=== PATIENT | female | born 1930 | race Caucasian/White ===

== ENCOUNTER 2019-01-11 09:02 | Outpatient (CLI) | payer MEDICARE, OTHER | END 2019-01-11 09:03 | disposition critical access hospital (66) | LOC: EMS 09:02 | PROVIDERS: ATTEND Surgery | DX: R07.89 Other chest pain (principal); M54.89 Other dorsalgia; V43.53XA Car driver injured in collision with pick-up truck in traffic accident, initial encounter; Y92.414 Local residential or business street as the place of occurrence of the external cause | CPT/HCPCS: A0425; A0429 ==

== ENCOUNTER 2019-01-11 09:23 | Emergency (ER) | payer OTHER, MEDICARE ==
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
[2019-01-11 10:56] VITALS: BP 211/97
== END 2019-01-11 10:57 | disposition home or self-care (01) ==
LOC: EDUNIT# → ED 09:23
DX: S20.219A Contusion of unspecified front wall of thorax, initial encounter (principal); V43.52XA Car driver injured in collision with other type car in traffic accident, initial encounter; I10 Essential (primary) hypertension
CPT/HCPCS: 71045; 93005; 99283

== ENCOUNTER 2019-02-02 09:42 | Outpatient (CLI) | payer MEDICARE, OTHER | END 2019-02-02 09:43 | disposition critical access hospital (66) | LOC: EMS 09:42 | PROVIDERS: ATTEND Surgery | DX: R11.2 Nausea with vomiting, unspecified (principal) | CPT/HCPCS: A0425; A0427 ==

== ENCOUNTER 2019-02-02 10:04 | Inpatient (IN) | payer MEDICARE, OTHER ==
--- NOTE | 2019-02-02 10:59 | ED Physician Documentation ---
PD HPI NVD - Stated complaint Stated Complaint: N/V - Chief complaint Chief Complaint: Abd Pain - History obtained from History obtained from: Patient - History of Present Illness Timing - onset: How many days ago (The patient had some diarrhea about a week ago. This started a couple of days after being prescribed chlorthalidone for hypertension. She was also having frequent urination was up all night due to that and had poor sleeping. The diarrhea and frequent urination continued for a couple of days and was associated with general weakness. They called her primary care and were told to stop the chlorthalidone. The diarrhea did decrease and she was feeling improved though still general weakness. She then started with nausea and vomiting a couple of days ago without any abdominal pain. That has persisted. She is having feeling of general weakness. Her daughter brought her in for concerns of dehydration.) Timing - duration: Days Timing - details: Abrupt onset, Still present, Waxing and waning Associated symptoms: Dizzy, Loss of appetite. No: Fever, Abdominal pain, Near syncope / syncope, Dysuria Contributing factors: No: Sick contact, Bad food, Recent antibiotics Improved by: No: Eating Worsened by: Eating Similar symptoms before: Has not had sx before Recently seen: Clinic (The patient was seen in the emergency room for unrelated problem but a month ago and is found to have high blood pressure. She was monitoring that and it remained high over a week or so. She was started on lisinopril by her primary care and the blood pressure continue to be high. She had chlorthalidone started about a week ago. She had the above-noted apparent side effects after starting it or might have been coincident with it.), Emergency Dept Review of Systems Constitutional: denies: Fever, Chills, Myalgias Nose: denies: Rhinorrhea / runny nose, Congestion Throat: denies: Sore throat Cardiac: denies: Chest pain / pressure, Palpitations Respiratory: denies: Cough GI: reports: Nausea, Vomiting (past couple days), Diarrhea (a week ago). denies: Abdominal Pain : denies: Dysuria, Frequency Musculoskeletal: denies: Neck pain, Back pain Neurologic: reports: Generalized weakness, Confused (today, mild). 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 : None HEENT: None Psych: None Musculoskeletal: Osteoarthritis Derm: None - Past Surgical History Past Surgical History: Yes General: Appendectomy Ortho: Hip replacement /FILLING CARRIER: section - Present Medications Home Medications: Ambulatory Orders Medication Instructions Recorded Confirmed Lisinopril [Prinivil] 20 mg PO 02/02/19 - Allergies Allergies/Adverse Reactions: Allergies Allergy/AdvReac Type Severity Reaction Status Date / Time fruit Allergy Respiratory Uncoded 07/30/15 16:54 - Social History Does the pt smoke?: No Smoking Status: Never smoker Does the pt drink ETOH?: No Does the pt have substance abuse?: No - Immunizations Immunizations are current?: No Immunizations: TDAP >10years/unknown - POLST Patient has POLST: No PD ED PE NORMAL - Vitals Vital signs reviewed: Yes - General General: No acute distress, Well developed/nourished. No: Alert and oriented X 3 (person and place, not really time. Appears generally weak. ) - HEENT HEENT: Pharynx benign. No: Moist mucous membranes - Neck Neck: Supple, no meningeal sign, No adenopathy - Cardiac Cardiac: RRR, No murmur - Respiratory Respiratory: Clear bilaterally - Abdomen Abdomen: Soft, Non distended, No organomegaly. No: Normal bowel sounds (decreased) - Female Female : Deferred - Rectal Rectal: Deferred - Back Back: No CVA TTP - Derm Derm: Warm and dry. No: Normal color (pale) - Extremities Extremities: No tenderness to palpate, Normal ROM s pain, No edema - Neuro Neuro: No motor deficit, No sensory deficit, Normal speech Eye Opening: Spontaneous Motor: Obeys Commands Verbal: Oriented GCS Score: 15 Results - Vitals Vitals: Vital Signs - 24 hr 02/02/19 02/02/19 10:06 11:39 Temperature 36 C L Heart Rate 73 67 Respiratory 22 18 Rate Blood Pressure 160/84 H 183/70 H O2 Saturation 100 98 Oxygen O2 Source [With Activity] Room air O2 Source [Without Activity] Room air O2 Source Room air - Labs Labs: Laboratory Tests 02/02/19 02/02/19 02/02/19 11:46 11:46 11:46 WBC 6.4 RBC 3.84 L Hgb 11.1 L Hct 33.0 L MCV 86.0 MCH 29.0 MCHC 33.8 RDW 13.7 Plt Count 273 MPV 6.9 L Neut # (Auto) 5.6 Lymph # (Auto) 0.5 L [place] # (Auto) 0.3 Eos # (Auto) 0.0 Baso # (Auto) 0.0 Absolute Nucleated RBC 0.00 Nucleated RBC % 0.0 Sodium 112 L* Potassium 3.4 L Chloride 77 L* Carbon Dioxide 24 Anion Gap 11.0 BUN 16 Creatinine 0.8 Estimated GFR (MDRD) 68 L Glucose 123 H Calcium 8.7 Magnesium 1.7 Total Bilirubin 1.0 AST 30 ALT 27 Alkaline Phosphatase 63 Troponin I < 0.04 Total Protein 6.2 L Albumin 3.9 Globulin 2.3 Albumin/Globulin Ratio 1.7 Lipase 25 PD MEDICAL DECISION MAKING - ED course Complexity details: reviewed results, re-evaluated patient (Less nauseated with antiemetics. We are giving her IV fluids. The electrolytes are showing considerable abnormality with the new hyponatremia of 112. This is presumed related to fluid losses with the diuretic, diarrhea, vomiting over the past week or so. She does have a mild level of confusion and does have general weakness according to her daughter. This is likely both dehydration as well as the hyponatremia. Her vomiting is likely related to gastritis so I did add a famotidine medication. She does not have any abdominal tenderness so I did not see need for imaging. Still awaiting a urine analysis.), considered differential, d/w patient, d/w family (daughter) Departure - Departure Disposition: 66 [facility] DC/Xfer Clinical Impression: Dehydration, Hyponatremia Nausea and vomiting Qualifiers: Vomiting type: unspecified Vomiting Intractability: non-intractable Qualified Code(s): R11.2 - Nausea with vomiting, unspecified Condition: Stable Record reviewed to determine appropriate education?: Yes
[2019-02-02] MEDS ORDERED: FAMOTIDINE 20 MG/2 ML VIAL IVP STA (11:31)
[2019-02-02] MEDS ORDERED: SODIUM CHLORIDE 0.9% 1,000 ML IV ONE ×2 (11:31→13:40)
[2019-02-02] MEDS ORDERED: ACETAMINOPHEN 1,000 MG/100 ML 100 ML IV STA (11:31)
[2019-02-02] MEDS ORDERED: ONDANSETRON 4 MG/2 ML VIAL IVP STA (11:31)
[2019-02-02 11:50] LABS: BASOPHILS % (AUTO) 0.1 %; HGB - HEMOGLOBIN 11.1 g/dL (12.0-16.0); LYMPHOCYTES # (AUTO) 0.5 10^3/uL (1.5-3.5); LYMPHOCYTES % (AUTO) 7.6 %; MEAN CORPUSCULAR HGB CONC 33.8 g/dL (32.0-36.0); MEAN PLATELET VOLUME 6.9 fL (7.9-10.8); MONOCYTES # (AUTO) 0.3 10^3/uL (0.0-1.0); MONOCYTES % (AUTO) 4.6 %; NEUTROPHILS # (AUTO) 5.6 10^3/uL (1.5-6.6); NEUTROPHILS % (AUTO) 87.7 %; PLT - PLATELET COUNT 273 10^3/uL (130-450); RED BLOOD COUNT 3.84 10^6/uL (4.20-5.40); RED CELL DISTRIBUTION WIDTH 13.7 % (12.0-15.0); WHITE BLOOD COUNT 6.4 x10^3/uL (4.8-10.8)
[2019-02-02 12:08] LABS: ALBUMIN 3.9 g/dL (3.2-5.5); ALBUMIN/GLOBULIN RATIO 1.7 (1.0-2.2); CALCIUM 8.7 mg/dL (8.5-10.3); CREATININE 0.8 mg/dL (0.4-1.0); MAGNESIUM 1.7 mg/dL (1.7-2.8); TOTAL PROTEIN 6.2 g/dL (6.7-8.2)
[2019-02-02] MEDS ORDERED: ONDANSETRON 4 MG/2 ML VIAL IVP PRN (13:23)
[2019-02-02] MEDS ORDERED: HYDROmorphone 0.5 MG/0.5 ML SYRINGE IVP PRN (13:23)
[2019-02-02] MEDS ORDERED: ONDANSETRON ODT 4 MG TABLET TL PRN (13:23)
[2019-02-02] MEDS ORDERED: PROCHLORPERAZINE 10 MG/2 ML VIAL IVP PRN (13:23)
[2019-02-02 14:00] LABS: BILIRUBIN,URINE NEGATIVE (NEGATIVE); GLUCOSE, URINE (UA) NEGATIVE (NEGATIVE); KETONES,URINE (UA) 15 mg/dL (NEGATIVE); LEUKOCYTE ESTERASE, URINE TRACE (NEGATIVE); NITRITE,URINE NEGATIVE (NEGATIVE); OCCULT BLOOD,URINE TRACE-LYSE (NEGATIVE); PH,URINE 7.5 PH (5.0-7.5); PROTEIN,URINE NEGATIVE (NEGATIVE); UROBILINOGEN,URINE 0.2 (NORMAL) E.U./dL (NORMAL)
[2019-02-02] MEDS ORDERED: SODIUM CHLORIDE 0.9% 1,000 ML IV SCH (14:00)
[2019-02-02 14:01] LABS: CLARITY,URINE HAZY (CLEAR)
[2019-02-02 14:09] LABS: BACTERIA,URINE Few /HPF (None Seen); RBC,URINE 0-5 /HPF (0-5); SQUAMOUS EPITHELIAL CELL,UR MANY Squamous (<= Few)
[2019-02-02] MEDS: PANTOPRAZOLE 40 MG VIAL IVP SCH ×2 (14:58→17:47)
[2019-02-02] MEDS: SODIUM CHLORIDE FLUSH 0.9% 10 ML SYRINGE IVP PRN (14:59)
[2019-02-02] MEDS: SODIUM CHLORIDE FLUSH 0.9% 10 ML SYRINGE IVP SCH (14:59)
[2019-02-02] MEDS ORDERED: cloNIDine 0.1 MG PATCH TOP SCH (15:00)
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
[2019-02-02] MEDS ORDERED: SODIUM CHLORIDE 3% HYPERTONIC 500 ML IV SCH ×3 (18:00→19:00)
--- NOTE | 2019-02-02 20:36 | XRAY Report ---
Reason: nausea,vomitting,abd pain Procedure Date: 02/02/2019 Accession Number: [id number] / [id number] Procedure: XR - Abdomen Acute CPT Code: FULL RESULT: EXAM: ABDOMINAL SERIES AND PA CHEST EXAM DATE: 02/02/2019 05:27 PM. CLINICAL HISTORY: Abdominal pain and nausea/vomiting. COMPARISON: CHEST 1 VIEW 01/11/2019 9:24 AM CHEST 1 VIEW 07/30/2015 4:33 PM 07/31/2015 5:52 PM. TECHNIQUE: 2 views abdomen and 1 view chest. FINDINGS: CHEST: Lungs/Pleura: Chronic blunting of the left costophrenic angle likely representing pleural thickening. Mild patchy basilar opacity. No evidence of edema. No pneumothorax. Mediastinum: Heart size is normal. The aorta is mildly tortuous, as before. ABDOMEN: Bowel Gas Pattern: Within normal limits. No abnormal stool volume, dilated loops, or abnormal air-fluid levels. Free Air: None. Bones: Mild left convex curvature centered at L1-L2. Other: Atherosclerotic calcifications within the aorta. IMPRESSION: 1. Mild patchy left basilar opacity, which could represent atelectasis, infection, or aspiration given history of vomiting. 2. Normal bowel gas pattern. RADIA
[2019-02-02 20:48] LABS: BILIRUBIN,URINE NEGATIVE (NEGATIVE); GLUCOSE, URINE (UA) NEGATIVE (NEGATIVE); KETONES,URINE (UA) 15 mg/dL (NEGATIVE); LEUKOCYTE ESTERASE, URINE NEGATIVE (NEGATIVE); NITRITE,URINE NEGATIVE (NEGATIVE); OCCULT BLOOD,URINE SMALL (NEGATIVE); PROTEIN,URINE TRACE mg/dL (NEGATIVE); UROBILINOGEN,URINE 0.2 (NORMAL) E.U./dL (NORMAL)
[2019-02-02 21:03] LABS: BACTERIA,URINE None Seen /HPF (None Seen); CLARITY,URINE CLEAR (CLEAR); RBC,URINE 0-5 /HPF (0-5); SQUAMOUS EPITHELIAL CELL,UR MOD Squamous (<= Few)
[2019-02-03] MEDS ORDERED: hydrALAZINE INJ 20 MG/ML VIAL IVP PRN ×2 (00:51→13:56)
[2019-02-03] MEDS: SODIUM CHLORIDE FLUSH 0.9% 10 ML SYRINGE IVP SCH ×4 (02:25→16:10)
[2019-02-03] MEDS: PANTOPRAZOLE 40 MG VIAL IVP SCH (06:17)
[2019-02-03 07:10] LABS: ALBUMIN 3.7 g/dL (3.2-5.5); CALCIUM 9.2 mg/dL (8.5-10.3); CREATININE 0.8 mg/dL (0.4-1.0); MAGNESIUM 1.7 mg/dL (1.7-2.8); PHOSPHORUS 2.6 mg/dL (2.5-4.6)
[2019-02-03] MEDS: SODIUM CHLORIDE 0.9% 1,000 ML IV SCH ×2 (07:35→18:15)
[2019-02-03] MEDS ORDERED: POTASSIUM CHLOR 20 MEQ/100 ML 20 MEQ/100 ML BAG IV SCH (08:00)
[2019-02-03] MEDS: POLYETHYLENE GLYCOL 3350 17 GM PACKET PO SCH (08:22)
[2019-02-03] MEDS: POTASSIUM CHLOR 10 MEQ/100 ML 10 MEQ/100 ML BAG IV SCH ×8 (08:44→18:31)
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
[2019-02-03] MEDS: ACETAMINOPHEN 325 MG TABLET PO PRN (15:34)
[2019-02-03] MEDS ORDERED: SODIUM CHLORIDE 3% HYPERTONIC 500 ML IV SCH (19:00)
[2019-02-04] MEDS: ACETAMINOPHEN 325 MG TABLET PO PRN (04:56)
[2019-02-04] MEDS: SODIUM CHLORIDE FLUSH 0.9% 10 ML SYRINGE IVP SCH ×2 (04:56→08:48)
[2019-02-04 04:59] LABS: ALBUMIN 3.2 g/dL (3.2-5.5); CREATININE 0.7 mg/dL (0.4-1.0); MAGNESIUM 1.8 mg/dL (1.7-2.8); PHOSPHORUS 1.9 mg/dL (2.5-4.6)
[2019-02-04] MEDS ORDERED: POTASSIUM CHLORIDE 20 MEQ TABLET PO ONE ×2 (06:00→06:33)
[2019-02-04] MEDS: NEUTRA-PHOS 250 MG TABLET PO SCH ×2 (06:11→08:42)
[2019-02-04] MEDS: SODIUM CHLORIDE FLUSH 0.9% 10 ML SYRINGE IVP PRN (06:11)
[2019-02-04] MEDS: PANTOPRAZOLE 40 MG VIAL IVP SCH (06:11)
[2019-02-04] MEDS ORDERED: MAGNESIUM OXIDE 400 MG TABLET PO SCH (08:00)
[2019-02-04] MEDS: POLYETHYLENE GLYCOL 3350 17 GM PACKET PO SCH (08:46)
[2019-02-04] MEDS ORDERED: SODIUM CHLORIDE 1 GM TABLET PO SCH (09:00)
--- NOTE | 2019-02-04 10:49 | Discharge Plan ---
Discharge Plan Disposition: Home Health Service Condition: Stable Prescriptions: cloNIDine 0.1 MG PATCH [[id number]] 1 patch TOP Q7D #30 patch Potassium Chloride [Klor-Con Sprinkle] 16 meq PO DAILY #60 capsule.er Activity Restrictions: Activity as Tolerated Shower Restrictions: No Driving Restrictions: No Additional Instructions or Follow Up instructions: You were admitted to the hospital because nausea vomiting and diarrhea had resulted in weakness and fatigue. When we evaluated you we found her sodium to be dangerously, dangerously low. We were able to slowly raise your sodium level in your bloodstream. It is now almost normal. Normal is 135 and you are 127 this morning. We think that the nausea and vomiting and diarrhea were a result of the chlorthalidone you are prescribed for blood pressure medicine. We are asking you to stop the chlorthalidone as well as hydrochlorothiazide. To control your blood pressure we are prescribing a new medication called Catapres and it is a patch. We will continue the Catapres as well as the Lisinopril to control your blood pressure. Your potassium was also very low as part of the reaction to the nausea and vomiting. We are sending you home on potassium capsules. We do not think this will be a permanent medication. We are asking you to see your primary care provider in the next week. They can check your potassium level and monitor it to see how long you will need to take the potassium prescription. For your strength, consider asking your doctor to refer you to a physical therapy program to improve your balance and your endurance. No Smoking: If you smoke, Please STOP! Call for help. Follow-up with: Tanisha Nicole ARNP [Credentialed Staff Provider] - (error) Josephine Hoyos ARNP [Credentialed Staff Provider] - 1 Week
[2019-02-04 12:47] VITALS: BP 140/81
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
== END 2019-02-04 13:15 | disposition home or self-care (01) | DRG 640 ==
LOC: ED 10:04 → MS2 13:23 → ICU 22:50
PROVIDERS: ADMIT Specialist; ATTEND Specialist
DX: E87.1 Hypo-osmolality and hyponatremia (principal); G93.41 Metabolic encephalopathy; R41.0 Disorientation, unspecified; E86.0 Dehydration; E87.6 Hypokalemia; R11.2 Nausea with vomiting, unspecified; T50.2X5A Adverse effect of carbonic-anhydrase inhibitors, benzothiadiazides and other diuretics, initial encounter; I10 Essential (primary) hypertension; S13.4XXD Sprain of ligaments of cervical spine, subsequent encounter; M17.12 Unilateral primary osteoarthritis, left knee; M25.472 Effusion, left ankle; R39.15 Urgency of urination; R35.0 Frequency of micturition; Z66 Do not resuscitate; J45.909 Unspecified asthma, uncomplicated; Z96.649 Presence of unspecified artificial hip joint; Y92.009 Unspecified place in unspecified non-institutional (private) residence as the place of occurrence of the external cause; V49.40XD Driver injured in collision with unspecified motor vehicles in traffic accident, subsequent encounter
CPT/HCPCS: 36415; 74022; 80048; 80053; 80069; 81001; 83690; 83735; 84295; 84484; 85025; 87150; 97161; 99284; A9270; J0131; 81003; 87086; 99283

== ENCOUNTER 2019-02-16 10:49 | Outpatient (CLI) | payer MEDICARE, OTHER ==
[2019-02-16 18:10] LABS: CALCIUM 9.3 mg/dL (8.5-10.3); CREATININE 0.8 mg/dL (0.4-1.0)
== END 2019-02-16 10:50 | disposition home or self-care (01) ==
LOC: LAB.F 10:49
PROVIDERS: ATTEND Registered Nurse
DX: E87.8 Other disorders of electrolyte and fluid balance, not elsewhere classified (principal)
CPT/HCPCS: 36415; 80048

== ENCOUNTER 2020-05-30 08:10 | Outpatient (CLI) | payer MEDICARE, OTHER | END 2020-05-30 08:11 | disposition critical access hospital (66) | LOC: EMS 08:10 | PROVIDERS: ATTEND Surgery | DX: M79.651 Pain in right thigh (principal); W01.0XXA Fall on same level from slipping, tripping and stumbling without subsequent striking against object, initial encounter; Y93.01 Activity, walking, marching and hiking; Y92.008 Other place in unspecified non-institutional (private) residence as the place of occurrence of the external cause | CPT/HCPCS: A0425; A0427 ==

== ENCOUNTER 2020-05-30 08:30 | Inpatient (IN) | payer MEDICARE, OTHER ==
--- NOTE | 2020-05-30 08:39 | ED Physician Documentation ---
PD HPI Fall - Stated complaint Stated Complaint: GLF - Chief complaint Chief Complaint: General - History obtained from History obtained from: Patient - History of Present Illness Mechanism of injury: Lost balance (she states she was walking to bathroom and felt herself fall back/right. Did not feel lightheaded nor any chest/abd pain. Did not feel she fainted nor LOC. Pain right hip. Some in thoracic area. No head nor neck pain.) Fall distance: Standing position Timing - onset: Today (just HOCKEY SCOUT) Injury(ies) location: Right Lower Extremity (hip). No: Head, Neck, Chest, Abdomen, Back Quality of pain: Pain Associated symptoms: No: LOC, AMS, Weakness, Paresthesias, Nausea / vomiting Contributing factors: No: Anticoagulated, Intoxicated Similar symptoms before: Diagnosis (had left hip fracture with repair about 5 years ago and healed without problems.) Recently seen: Not recently seen Review of Systems Constitutional: denies: Fever, Chills Nose: denies: Rhinorrhea / runny nose, Congestion Throat: denies: Sore throat Cardiac: denies: Chest pain / pressure, Palpitations Respiratory: denies: Dyspnea, Cough GI: denies: Abdominal Pain, Nausea, Vomiting, Diarrhea Skin: denies: Abrasion (s), Laceration (s) Musculoskeletal: denies: Neck pain Neurologic: denies: Focal weakness, Numbness, Near syncope, Altered mental status, Headache PD PAST MEDICAL HISTORY - Past Medical History Cardiovascular: Hypertension, Murmur Respiratory: Asthma Neuro: None Endocrine/Autoimmune: None GI: None PRECISION LENS POLISHER: None : None, Frequency (frequent need to void with little urine output) HEENT: None, Other (wears dentures, well-fitting, no conerns) Psych: None Musculoskeletal: Osteoarthritis Derm: None - Past Surgical History Past Surgical History: Yes General: Appendectomy Ortho: Hip replacement /PRECISION LENS POLISHER: section - Present Medications Home Medications: Ambulatory Orders Medication Instructions Recorded Confirmed No Known Home Medications 05/30/20 05/30/20 - Allergies Allergies/Adverse Reactions: Allergies Allergy/AdvReac Type Severity Reaction Status Date / Time Fruit Allergy Intermediate Respiratory Verified 05/30/20 08:37 chlorthalidone AdvReac Intermediate URINARY Verified 05/30/20 08:37 FREQUENCY,HYPONATREMIA - Social History Does the pt smoke?: No Smoking Status: Former smoker Does the pt drink ETOH?: No Does the pt have substance abuse?: No - Immunizations Immunizations are current?: No Immunizations: TDAP >10years/unknown - POLST Patient has POLST: Yes POLST Status: DNR PD ED PE NORMAL - Vitals Vital signs reviewed: Yes - General General: Alert and oriented X 3, No acute distress, Well developed/nourished - HEENT HEENT: Atraumatic, Pharynx benign - Neck Neck: Supple, no meningeal sign, No bony TTP, No adenopathy - Cardiac Cardiac: RRR, No murmur - Respiratory Respiratory: Clear bilaterally - Abdomen Abdomen: Normal bowel sounds, Soft, Non tender, Non distended - Back Back: No spinal TTP - Derm Derm: Normal color, Warm and dry - Extremities Extremities: No edema, No calf tenderness / cord, Other (right hip tender at joint, and pain with impaction and rotation. ) - Neuro Neuro: Alert and oriented X 3, No motor deficit, No sensory deficit, Normal speech Eye Opening: Spontaneous Motor: Obeys Commands Verbal: Oriented GCS Score: 15 Results - Vitals Vitals: Vital Signs - 24 hr 05/30/20 05/30/20 05/30/20 08:31 09:10 09:40 Temperature 36.2 C L 36.8 C Heart Rate 76 69 Respiratory 16 12 Rate Blood Pressure 194/124 H 208/87 H O2 Saturation 94 96 68 L 05/30/20 09:47 Temperature Heart Rate 61 Respiratory 16 Rate Blood Pressure 222/83 H O2 Saturation 100 Oxygen O2 Source [With Activity] Room air O2 Source [Without Activity] Room air O2 Source Simple Mask Oxygen Flow Rate 6 - Labs Labs: Laboratory Tests 05/30/20 05/30/20 09:05 09:05 WBC 10.6 RBC 3.96 L Hgb 11.3 L Hct 35.8 L MCV 90.4 MCH 28.5 MCHC 31.6 L RDW 12.9 Plt Count 268 MPV 9.5 Neut # (Auto) 9.0 H Lymph # (Auto) 0.9 L Kendall # (Auto) 0.5 Eos # (Auto) 0.1 Baso # (Auto) 0.1 Absolute Nucleated RBC 0.00 Nucleated RBC % 0.0 Sodium 131 L Potassium 4.0 Chloride 94 L Carbon Dioxide 29 Anion Gap 8.0 BUN 22 H Creatinine 0.8 Estimated GFR (MDRD) 68 L Glucose 107 H Calcium 9.5 Magnesium 2.3 Total Bilirubin 0.9 AST 25 ALT 20 Alkaline Phosphatase 76 Total Protein 7.0 Albumin 4.3 Globulin 2.7 Albumin/Globulin Ratio 1.6 Lipase 26 - Rads (name of study) right hip Radiology: Prelim report reviewed (femoral neck fracture displaced), See rad report PD MEDICAL DECISION MAKING - ED course Complexity details: re-evaluated patient (was having spasms of leg, so asking for muscle relaxant. Given Diazepam 2.5 mg low dose and had decreased resp effort briefly after that. She aroused before able to be given Romazicon. Given supplemental oxygen. Did not need BVM. ), considered differential (likely hip fracture. Will get xrays and labs. ), d/w patient, d/w family, d/w energy consultant (Ortho and Hospitalist) Departure - Departure Disposition: 66 [facility] DC/Xfer Clinical Impression: Fall from standing Qualifiers: Encounter type: initial encounter Qualified Code(s): W19.XXXA - Unspecified fall, initial encounter Femoral neck fracture Qualifiers: Encounter type: initial encounter Fracture type: closed Laterality: right Qualified Code(s): S72.001A - Fracture of unspecified part of neck of right femur, initial encounter for closed fracture Condition: Stable Record reviewed to determine appropriate education?: Yes Discharge Date/Time: 05/30/20 11:08
[2020-05-30] MEDS ORDERED: SODIUM CHLORIDE 0.9% 1,000 ML IV STA (08:43)
[2020-05-30 09:14] LABS: BASOPHILS # (AUTO) 0.1 10^3/uL (0.0-0.1); BASOPHILS % (AUTO) 0.7 %; EOSINOPHILS # (AUTO) 0.1 10^3/uL (0.0-0.7); EOSINOPHILS % (AUTO) 0.8 %; HGB - HEMOGLOBIN 11.3 g/dL (12.0-16.0); LYMPHOCYTES # (AUTO) 0.9 10^3/uL (1.5-3.5); LYMPHOCYTES % (AUTO) 8.7 %; MEAN CORPUSCULAR HEMOGLOBIN 28.5 pg (27.0-31.0); MEAN CORPUSCULAR HGB CONC 31.6 g/dL (32.0-36.0); MEAN CORPUSCULAR VOLUME 90.4 fL (81.0-99.0); MEAN PLATELET VOLUME 9.5 fL (7.9-10.8); MONOCYTES # (AUTO) 0.5 10^3/uL (0.0-1.0); MONOCYTES % (AUTO) 4.6 %; NEUTROPHILS % (AUTO) 84.7 %; PLT - PLATELET COUNT 268 10^3/uL (130-450); RED BLOOD COUNT 3.96 10^6/uL (4.20-5.40); RED CELL DISTRIBUTION WIDTH 12.9 % (12.0-15.0); WHITE BLOOD COUNT 10.6 x10^3/uL (4.8-10.8)
--- NOTE | 2020-05-30 09:24 | XRAY Report ---
PROCEDURE: Hip w/Pelvis 2-3V RT INDICATIONS: fall with pain right hip/thigh on ROM TECHNIQUE: AP pelvis with lateral view(s) of the right hip(s). COMPARISON: Pelvic radiograph dated 07/31/2015. FINDINGS: Bones: There is acute fracture of right femoral neck with superior migration of proximal femoral shaf t in relation to femoral head. No dislocation. No evidence of avascular necrosis of femoral head. Dilcia or left total hip arthroplasty is again seen and unchanged. Pelvic ring appears grossly intact. No s uspicious bony lesions. Soft tissues: The visualized bowel gas pattern is normal. No suspicious soft tissue calcifications. IMPRESSION: Acute displaced right femoral neck fracture as above. Reviewed by: Titi Moe MD on 05/30/2020 9:22 AM PDT Approved by: Titi Moe MD on 05/30/2020 9:22 AM PDT Station ID: [id number]
[2020-05-30] MEDS ORDERED: HYDROmorphone 0.5 MG/0.5 ML SYRINGE IVP STA (09:30)
[2020-05-30] MEDS ORDERED: diazePAM INJ 5 MG/ML SYRINGE IVP STA (09:30)
[2020-05-30 09:31] LABS: ALBUMIN 4.3 g/dL (3.2-5.5); ALBUMIN/GLOBULIN RATIO 1.6 (1.0-2.2); BILIRUBIN,TOTAL 0.9 mg/dL (0.2-1.0); CALCIUM 9.5 mg/dL (8.5-10.3); CREATININE 0.8 mg/dL (0.4-1.0); MAGNESIUM 2.3 mg/dL (1.7-2.8)
[2020-05-30] MEDS ORDERED: KETOROLAC 15 MG/ML VIAL IVP STA (09:51)
[2020-05-30] MEDS ORDERED: FLUMAZENIL 0.1 MG/1 ML 5 ML MDV IVP STA (09:51)
[2020-05-30] MEDS ORDERED: hydrALAZINE INJ 20 MG/ML VIAL IVP PRN ×2 (10:07→16:38)
[2020-05-30] MEDS ORDERED: SODIUM CHLORIDE FLUSH 0.9% 10 ML SYRINGE IVP PRN ×2 (10:08→17:41)
[2020-05-30] MEDS ORDERED: KETOROLAC 15 MG/ML VIAL IVP PRN (10:17)
[2020-05-30] MEDS ORDERED: fentaNYL 100 MCG/2 ML VIAL IVP STA (10:54)
--- NOTE | 2020-05-30 11:01 | HISTORY & PHYSICAL EXAMINATION ---
Chief Complaint - Chief Complaint Chief Complaint: fall, right hip pain History of Present Illness - Admitted From Admitted From:: ER - History Obtained From Records Reviewed: Nehal History obtained from: pt - History of Present Illness HPI Comment/Other: This is a 89 years old female with a past medical history significant for hypertension, heart murmur, asthma, urinary frequency, osteoarthritis, Previous left hip repair due to fall, Who presented ER complaining fall. Patient report she had ground level of fall in the home. Because she cannot grape and hold then she fall in the ground. She denies loss of conscious, Denies any other injury. Patient did have similar fall happened in 2015 on her left hip then she had a left hip repair in this hospital in 2014.She denies any cardiac events in the past, she does not have window maker. She did report she has heart murmur. She had blood blood pressure over 200 in the ER, SBP at 192 in the medical floor. pt report she usually did not see her doctor instead she believe banquet chef. Nurse try to give her blood pressure medicine but she declined, she stated she is taking banquet chef, she is thinking her blood pressure is high because of her pain, so she declined to take medication now, she hope we give her her time in the pain control and then check the blood pressure again. Patient report his pain is controlled now. I discussed with nurse, we will continue her pain control, check pt's BP and continue monitor. Patient denies fever, chest pain, syncope, abdominal pain, headache. X-ray will show patient had an acute displaced right femur neck fracture. Orthopedic surgeon was called in the ER. 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 : reports: None, Frequency (frequent need to void with little urine output) HEENT: reports: None, Other (wears dentures, well-fitting, no conerns) Psych: reports: None Musculoskeletal: reports: Osteoarthritis Derm: reports: None MRSA Hx?: No - Past Surgical History General: reports: Appendectomy Ortho: reports: Hip replacement /PRINT AND PATTERN DESIGNER: reports: section - Family & Social History Family History: Mother: , Father: , Cancer, CVA/TIA, Hypertension Family History Comment/Other: Patient report both her parents at the age 80, her father from CVA and cancer, her mother had osteoporosis. She had 8 children before now she have 6 children, her young son recently. Her 22 years ago Social History Notes: She denies any history of cigarette smoking, alcohol or drug issue. She reported she is living alone and independent, but her family two daughter is close to her and another people closer to her to help her. she hope discharged from the hospital to directly to go home, not to halfway facility at this time, but she also is open we discuss after we have surgery to see the healing conditions. she is willing to continue to have surgery at this time. - Substance History Use: Uses substance without health or social issues: NONE - POLST Patient has POLST: Yes POLST Status: DNR Meds/Allgy - Home Medications Home Medications: Ambulatory Orders Medication Instructions Recorded Confirmed lisinopriL [Lisinopril] 10 mg PO DAILY 02/02/19 02/02/19 Acetaminophen 325 mg PO 02/03/19 Magnesium Oxide [Mag Ox] 400 mg PO DAILYWM tablet 02/04/19 Potassium Chloride [Klor-Con 16 meq PO DAILY #60 capsule.er 02/04/19 Sprinkle] cloNIDine 0.1 MG PATCH 1 patch TOP Q7D #30 patch 02/04/19 [[id number]] - Allergies Allergies/Adverse Reactions: Allergies Allergy/AdvReac Type Severity Reaction Status Date / Time Fruit Allergy Intermediate Respiratory Verified 05/30/20 08:37 chlorthalidone AdvReac Intermediate URINARY Verified 05/30/20 08:37 FREQUENCY,HYPONATREMIA Review of Systems - Constitutional Constitutional: denies: Fatigue, Fever, Chills, Malaise, Weakness, Poor appet ite, Diaphoresis, Night sweats - Eyes Eyes: denies: Pain, Blurred vision, Spots in vision, Field loss, Vision loss, Dipolpia - Ears, Nose & Throat Ears, Nose & Throat: denies: Ear pain, Hearing loss, Tinnitus, Vertigo, Nasal pain, Nasal discharge, Nosebleeds, Nasal congestion, Sore throat, Bleeding gums - Cardiovascular Cariovascular: denies: Irregular heart rate, Palpitations, Chest pain, Edema, Lightheadedness, Syncope, Exertional dyspnea, Decr. exercise tolerance - Respiratory Respiratory: denies: Cough, Sputum production, Wheezing, Snoring, Hemoptysis, Orthopnea, SOB at rest, SOB with exertion - Gastrointestinal Gastrointestinal: denies: Abdominal pain, Abdominal distention, Constipation, Diarrhea, Rectal bleeding, Black stools, Bloody stools, Nausea, Vomiting, Brian blood emesis, Coffee grounds emesis, Reflux/heartburn - Genitourinary Genitourinary: denies: Dysuria, Urgency, Hematuria, Incontinence, Flank pain, Nocturia, Urethral discharge - Musculoskeletal Musculoskeletal: reports: Limited range of motion, Joint pain. denies: Muscle pain, Back pain, Muscle aches, Stiffness, Muscle weakness, Gout - Integumentary Integumentary: denies: Rash, Lesions, Dryness, Lumps, Pigment changes - Neurological Neurological: denies: General weakness, Focal weakness, Headache, Dizziness, Numbness, Pre-existing deficit, Abnormal gait, Seizures, Incoordination, Slurred speech - Psychiatric Psychiatric: denies: Suicidal, Delusions, Hallucinations, Homicidal - Endocrine Endocrine: denies: Polyuria, Polydypsia, Polyphagia - Hematologic/Lymphatic Hematologic/Lymphatic: denies: Anemia, Bruising, Petechiae, Blood clots, Lym phadenopathy, Bleeding tendencies Exam - Vital Signs Vital Signs: Vital Signs x48h Temp Pulse Resp BP Pulse Ox 05/30/20 10:30 76 24 211/89 H 100 05/30/20 09:47 61 16 222/83 H 100 05/30/20 09:40 68 L 05/30/20 09:10 36.8 C 69 12 208/87 H 96 05/30/20 08:31 36.2 C L 76 16 194/124 H 94 - Physical Exam General Appearance: positive: No acute distress, Alert. negative: Lethargic Eyes Bilateral: positive: Normal inspection, PERRL, No lid inflammation ENT: positive: ENT inspection nml, No signs of dehydration. negative: Purulent nasal drainage Neck: positive: Nml inspection, Thyroid nml, Trachea midline. negative: Thyromegaly, Stiff neck, Tracheal deviation Respiratory: positive: Chest non-tender, No respiratory distress, Breath sounds nml. negative: Wheezes, Rales, Rhonchi Cardiovascular: positive: Regular rate & rhythm, Systolic murmur, Diastolic murmur. negative: No murmur, Irregularly irregular, Tachycardia, Bradycardia Peripheral Pulses: positive: 2+ Abdomen: positive: Non-tender, Nml bowel sounds, No distention. negative: Tend erness, Guarding, Rebound Back: positive: Nml inspection. negative: CVA tenderness (R), CVA tenderness (L) Skin: positive: Color nml, No rash, Warm, Dry. negative: Cyanosis, Diaphoresis, Pallor Extremities: positive: Nml appearance. negative: Non-tender, Full ROM, Calf tenderness, Raysa's sign/cords Neurologic/Psychiatric: positive: Oriented x3, Sensation nml, Mood/affect nml. negative: Weakness, Sensory loss, Facial droop, Slurred/abnml speech, Depressed mood/affect Sepsis Event Note (H) - Evaluation Current Stage of Sepsis: Ruled out Conclusion/Plan - Problem List (1) Displaced fracture of right femoral neck Conclusion/Plan: Patient had ground level fall in the home without loss conscious or syncope.Patient denies chest pain or shortness of breathing. X-ray show patient had a acute displaced right humeral neck fracture. Surgeon was called, Plan to have surgery on this afternoon. We will continue pain control, continue consult with surgeon. We will follow-up for s/p of surgery (2) Encounter for preoperative assessment for noncoronary cardiac surgery Conclusion/Plan: Patient denies any hx of cardiac events or history of CAD. But the patient had cardiac cardiac murmur. We will order PT/INR, EKG, echo before surgery. Preoperation cardiac events risk 0.4% per Jackson's criteria for estimated rate of myocardial infarction, pulmonary edema, ventricular fibrillation, cardiac arrest or completely heart block. (3) Hypertensive urgency Conclusion/Plan: pt's BP is 192/66 now, but pt decline to take BP meds now because she believe banquet chef. we will check BP and pain control for pt. surgeon was notified pt had high BP. Continue hydralazine as needed, continue vital signs monitor and proposal manager, continue pain control. (4) Heart murmur Conclusion/Plan: Patient reported she had murmur in the past, patient had a similar surgery on 2014. We will check echo for patient, surgeon was notified patient had a cardiac murmur as well. Patient denies history of CAD, patient denies syncope or loss conscious in this fall. (5) Hyponatremia Conclusion/Plan: Patient had sodium 131, it is likely prerenal azotemia, and hypovolemic and hyponatremia. We will continue intravenous hydration for patient, continue laboratory operations coordinator - Lab Results Fish Bones: 05/30/20 09:05 05/30/20 09:05 Core Measures - Anticipated LOS I expect patient to be DC'd or transferred within 96 hours.: Yes - DVT/VTE - Prophylaxis VTE/DVT Device ordered at admit?: Yes VTE/DVT Prophylaxis med ordered at admit?: Yes
[2020-05-30] MEDS ORDERED: MORPHINE 2 MG/ML CARPUJECT IVP PRN ×2 (12:06→13:58)
[2020-05-30] MEDS ORDERED: ALBUTEROL NEB 2.5 MG/3 ML INH PRN (12:11)
[2020-05-30 12:58] LABS: BILIRUBIN,URINE NEGATIVE (NEGATIVE); GLUCOSE, URINE (UA) NEGATIVE (NEGATIVE); KETONES,URINE (UA) NEGATIVE (NEGATIVE); LEUKOCYTE ESTERASE, URINE NEGATIVE (NEGATIVE); NITRITE,URINE NEGATIVE (NEGATIVE); OCCULT BLOOD,URINE LARGE (NEGATIVE); PH,URINE 7.5 PH (5.0-7.5); PROTEIN,URINE NEGATIVE (NEGATIVE); UROBILINOGEN,URINE 0.2 (NORMAL) E.U./dL (NORMAL)
[2020-05-30 13:00] LABS: CLARITY,URINE HAZY (CLEAR)
[2020-05-30] MEDS: SODIUM CHLORIDE 0.9% 1,000 ML IV SCH (13:02)
--- NOTE | 2020-05-30 13:05 | HISTORY & PHYSICAL EXAMINATION ---
HPI - Admitted From Admitted from: ED - History Obtained From History obtained from: Patient - History of Present Illness Severity at the worst: reports: Severe Pain Quality: reports: Sharp Timing: reports: Abrupt onset HPI Comment/Other: This is a relatively healthy 89-year-old woman who was walking with her cane and a cup of coffee in her other hand, fell at home onto her right side and had marked pain to the upper thigh and hip region on the right side with inability to bear weight on right leg. She is brought to the emergency room following the injury. She denies associated symptoms such as loss of consciousness, syncope, faintness, lightheadedness, chest pain or shortness of breath with the fall. Her legs just seem to give out when she fell this morning at home. She has had a previous fracture of the left hip and approximately 4 years ago had a left hip hemiarthroplasty. She is done well regaining her ability to ambulate following her left hip fracture in the past. She has no complaints other than pain to her right thigh area following the fall. She does not take any medications and does not usually see a doctor for any medical issues. 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 PAINTER: positive: None : positive: None, Frequency (frequent need to void with little urine output) HEENT: positive: None, Other (wears dentures, well-fitting, no conerns) Psych: positive: None Musculoskeletal: positive: Osteoarthritis Derm: positive: None MRSA Hx?: No - Past Surgical History General: positive: Appendectomy Ortho: positive: Hip replacement /ORNAMENTAL PAINTER: positive: section Social & Family Hx - Social History Does the pt smoke?: No Smoking Status: Former smoker Does the pt drink ETOH?: No Does the pt have substance abuse?: No - POLST Patient has POLST: Yes POLST Status: DNR Meds/Allgy - Home Medications Home Medications: Ambulatory Orders Medication Instructions Recorded Confirmed lisinopriL [Lisinopril] 10 mg PO DAILY 02/02/19 02/02/19 Acetaminophen 325 mg PO 02/03/19 Magnesium Oxide [Mag Ox] 400 mg PO DAILYWM tablet 02/04/19 Potassium Chloride [Klor-Con 16 meq PO DAILY #60 capsule.er 02/04/19 Sprinkle] cloNIDine 0.1 MG PATCH 1 patch TOP Q7D #30 patch 02/04/19 [[id number]] - Allergies Allergies/Adverse Reactions: Allergies Allergy/AdvReac Type Severity Reaction Status Date / Time Fruit Allergy Intermediate Respiratory Verified 05/30/20 08:37 chlorthalidone AdvReac Intermediate URINARY Verified 05/30/20 08:37 FREQUENCY,HYPONATREMIA Exam - Vital Signs Vital Signs: Vital Signs x48h Temp Pulse Pulse Resp BP BP Pulse Ox 05/30/20 11:50 36.4 C L 63 18 192/66 H 93 05/30/20 10:30 76 24 211/89 H 100 05/30/20 09:47 61 16 222/83 H 100 05/30/20 09:40 68 L 05/30/20 09:10 36.8 C 69 12 208/87 H 96 05/30/20 08:31 36.2 C L 76 16 194/124 H 94 - Physical Exam General Appearance: positive: Moderate distress Eyes Bilateral: positive: Normal inspection Neck: positive: Nml inspection Respiratory: positive: Chest non-tender, No respiratory distress Cardiovascular: positive: Systolic murmur Peripheral Pulses: positive: 2+ Abdomen: positive: Non-tender Skin: positive: Warm, Dry Extremities: negative: Other (The right hip is shortened and externally rotated, marked pain with passive movement right hip. There is no thigh hematoma or skin break about the right hip. Neurovascular status is intact to right leg) Neurologic/Psychiatric: positive: Oriented x3, Motor nml, Sensation nml Results - Lab Results Fish Bones: 05/30/20 09:05 05/30/20 09:05 Other Lab Results: Lab Results x24hrs 05/30/20 05/30/20 05/30/20 Range/Units 12:28 09:05 09:05 WBC 10.6 (4.8-10.8) x10^3/uL RBC 3.96 L (4.20-5.40) 10^6/uL Hgb 11.3 L (12.0-16.0) g/dL Hct 35.8 L (37.0-47.0) % MCV 90.4 (81.0-99.0) fL MCH 28.5 (27.0-31.0) pg MCHC 31.6 L (32.0-36.0) g/dL RDW 12.9 (12.0-15.0) % Plt Count 268 (130-450) 10^3/uL MPV 9.5 (7.9-10.8) fL Neut # (Auto) 9.0 H (1.5-6.6) 10^3/uL Lymph # (Auto) 0.9 L (1.5-3.5) 10^3/uL [place] # (Auto) 0.5 (0.0-1.0) 10^3/uL Eos # (Auto) 0.1 (0.0-0.7) 10^3/uL Baso # (Auto) 0.1 (0.0-0.1) 10^3/uL Absolute Nucleated RBC 0.00 x10^3/uL Nucleated RBC % 0.0 /100WBC Sodium 131 L (135-145) mmol/L Potassium 4.0 (3.5-5.0) mmol/L Chloride 94 L (101-111) mmol/L Carbon Dioxide 29 (21-32) mmol/L Anion Gap 8.0 (6-13) BUN 22 H (6-20) mg/dL Creatinine 0.8 (0.4-1.0) mg/dL Estimated GFR (MDRD) 68 L (>89) Glucose 107 H (70-100) mg/dL Calcium 9.5 (8.5-10.3) mg/dL Magnesium 2.3 (1.7-2.8) mg/dL Total Bilirubin 0.9 (0.2-1.0) mg/dL AST 25 (10-42) IU/L ALT 20 (10-60) IU/L Alkaline Phosphatase 76 (42-121) IU/L Total Protein 7.0 (6.7-8.2) g/dL Albumin 4.3 (3.2-5.5) g/dL Globulin 2.7 (2.1-4.2) g/dL Albumin/Globulin Ratio 1.6 (1.0-2.2) Lipase 26 (22-51) U/L Urine Color YELLOW Urine Clarity HAZY (CLEAR) Urine pH 7.5 (5.0-7.5) PH Ur Specific [place] 1.015 (1.002-1.030) Urine Protein NEGATIVE (NEGATIVE) mg/dL Urine Glucose (UA) NEGATIVE (NEGATIVE) mg/dL Urine Ketones NEGATIVE (NEGATIVE) mg/dL Urine Occult Blood LARGE H (NEGATIVE) Urine Nitrite NEGATIVE (NEGATIVE) Urine Bilirubin NEGATIVE (NEGATIVE) Urine Urobilinogen 0.2 (NORMAL) (NORMAL) E.U./dL Ur Leukocyte Esterase NEGATIVE (NEGATIVE) Ur Microscopic Review INDICATED Urine Culture Comments Not Reportable - Diagnostic Imaging Results Diagnostic Imaging Results: negative: Read independently (Displaced femoral neck fracture right hip) Impression/Plan - Problem List Problem List: Displaced femoral neck fracture right hip I would recommend the same procedure as she had on the left side, namely, left hip hemiarthroplasty. I discussed the risk, likelihood of achieving goals, alternatives to surgery, disability and . She seems to have understanding the procedure, questions were encouraged. She is also being evaluated by her hospitalist with preoperative issues including hypertension and a cardiac murmur that may be consistent with aortic stenosis.
--- NOTE | 2020-05-30 13:05 | ANESTHESIA ---
Pre-Anesthesia VS, & Labs - Diagnosis right hip fracture - Procedure right Hip Hemoprosthesis Vital Signs: Temp Pulse Resp BP Pulse Ox 36.4 C L 63 18 192/66 H 93 05/30/20 11:50 05/30/20 11:50 05/30/20 11:50 05/30/20 11:50 05/30/20 11:50 Height 5 ft 3 in Weight (kg) 74.843 kg Body Mass Index 29.2 - NPO >8 hours - Is Patient ?: No - Lab Results Current Lab Results: Laboratory Tests 05/30/20 09:05: Sodium 131 L, Potassium 4.0, Chloride 94 L, Carbon Dioxide 29, Anion Gap 8.0, BUN 22 H, Creatinine 0.8, Estimated GFR (MDRD) 68 L, Glucose 107 H, Calcium 9.5, Magnesium 2.3, Total Bilirubin 0.9, AST 25, ALT 20, Alkaline Phosphatase 76, Total Protein 7.0, Albumin 4.3, Globulin 2.7, Albumin/Globulin Ratio 1.6, Lipase 26 05/30/20 09:05: WBC 10.6, RBC 3.96 L, Hgb 11.3 L, Hct 35.8 L, MCV 90.4, MCH 28.5, MCHC 31.6 L, RDW 12.9, Plt Count 268, MPV 9.5, Neut # (Auto) 9.0 H, Lymph # (Auto) 0.9 L, [place] # (Auto) 0.5, Eos # (Auto) 0.1, Baso # (Auto) 0.1, Absolute Nucleated RBC 0.00, Nucleated RBC % 0.0 Lab results reviewed: Yes Fish Bones: 05/30/20 09:05 05/30/20 09:05 Home Medications and Allergies Active Medications Acetaminophen (Tylenol) 650 mg PO Q4HR PRN PRN Reason: Pain 1 to 4 Albuterol () 2.5 mg INH RTQ4H PRN PRN Reason: Wheezing Enoxaparin Sodium (Lovenox) 40 mg SUBQ DAILY [facility] Hydralazine HCl (Apresoline Inj) 10 mg IVP Q4D PRN PRN Reason: Hypertensive Emergency Sodium Chloride (Normal Saline 0.9%) 1,000 mls @ 100 mls/hr IV .Q10H NILDA Stop: 05/31/20 06:59 Last Admin: 05/30/20 13:02 Dose: 100 mls/hr Documented by: Ketorolac Tromethamine (Toradol Inj (15mg)) 15 mg IVP Q6HR PRN PRN Reason: PAIN Stop: 06/04/20 10:16 Morphine Sulfate (Morphine (Carpuject)) 2 mg IVP Q2HR PRN PRN Reason: PAIN Ondansetron HCl (Zofran Inj) 4 mg IVP Q6HR PRN PRN Reason: Nausea / Vomiting Oxycodone HCl (Roxicodone) 5 mg PO Q4HR PRN PRN Reason: Pain 5 to 7 Pantoprazole Sodium (Protonix) 40 mg PO QDAC NILDA Sodium Chloride (Normal Saline Flush 0.9%) 10 ml IVP PRN PRN PRN Reason: NEEDED PER PROVIDER ORDERS Sodium Chloride (Normal Saline Flush 0.9%) 10 ml IVP 0100,0900,1700 NILDA lisinopriL [Lisinopril] 10 mg PO DAILY 02/02/19 Acetaminophen 325 mg PO 02/03/19 Allergies/Adverse Reactions: Allergies Allergy/AdvReac Type Severity Reaction Status Date / Time Fruit Allergy Intermediate Respiratory Verified 05/30/20 08:37 chlorthalidone AdvReac Intermediate URINARY Verified 05/30/20 08:37 FREQUENCY,HYPONATREMIA Anes History & Medical History - Anesthetic History Anesthesia Complications: reports: No previous complications Family history of Anesthesia Complications: Denies Family history of Malignant Hyperthermia: Denies - Medical History Cardiovascular: reports: Hypertension (patient stopped Lisinopril 2 months ago, stated "didn't want to take anymore"), Murmur Pulmonary: reports: Asthma Gastrointestinal: reports: None Urinary: reports: None, Frequency (frequent need to void with little urine output) Neuro: reports: None Musculoskeletal: reports: Osteoarthritis Endocrine/Autoimmune: reports: None Blood Disorders: reports: None Skin: reports: None Smoking Status: Former smoker - Surgical History General: Appendectomy Urologic: Kidney stents Gynecologic: section Orthopedic: Hip replacement Exam General: Alert, Oriented x3, Cooperative, No acute distress Dental: Dentures full Upper, Dentures full Lower Mouth Openin Fingerbreadth Neck Mobility: Normal Mallampati classification: II Respiratory: Lungs clear, Normal breath sounds, No respiratory distress, No accessory muscle use Cardiovascular: Regular rate, Normal S1, Normal S2, No murmurs Plan Anesthesia Type: General, Fascia [place]liaca Block Regional Block: Per Surgeon's request for Post Op pain control Consent for Procedure(s) Verified and Reviewed: Yes Code Status: Attempt Resuscitation ASA classification: 3-Severe systemic disease Is this case an emergency?: No
[2020-05-30 13:16] LABS: BACTERIA,URINE None Seen /HPF (None Seen); RBC,URINE TNTC /HPF (0-5); SQUAMOUS EPITHELIAL CELL,UR NONE SEEN (<= Few)
[2020-05-30] MEDS: ACETAMINOPHEN 325 MG TABLET PO PRN (13:18)
[2020-05-30] MEDS: oxyCODONE 5 MG TABLET PO PRN (13:18)
[2020-05-30 13:22] LABS: PT - PROTHROMBIN TIME 11.7 secs (9.9-12.6)
[2020-05-30] MEDS ORDERED: NALOXONE 0.4 MG/ML VIAL IVP PRN (13:58)
[2020-05-30] MEDS ORDERED: ePHEDrine 50 MG/ML VIAL IVP PRN (13:58)
[2020-05-30] MEDS ORDERED: METOCLOPRAMIDE 10 MG/2 ML VIAL IVP PRN (13:58)
[2020-05-30] MEDS ORDERED: ATROPINE ABBOJECT 1 MG/10 ML SYRINGE IVP PRN (13:58)
[2020-05-30] MEDS ORDERED: fentaNYL 100 MCG/2 ML VIAL IVP PRN (13:58)
[2020-05-30] MEDS ORDERED: HYDROmorphone 0.5 MG/0.5 ML SYRINGE IVP PRN (13:58)
[2020-05-30] MEDS ORDERED: ONDANSETRON 4 MG/2 ML VIAL IVP PRN ×2 (13:58→17:41)
[2020-05-30] MEDS ORDERED: LACTATED RINGERS 1,000 ML IV SCH (14:00)
--- NOTE | 2020-05-30 14:26 | PHARMACY PROGRESS NOTE ---
- Best Possible Medication History Admit Date and Time: 05/30/20 1008 Processed by: Pharmacy Medication History completed: Yes Patient Interview: Completed Secondary Source(s): Pharmacy records, Insurance records (PATIENT INTERVIEWED BY COAT TAILOR. PATIENT CONFIRMS SHE DOES NOT TAKE ANY PRESCRIPTION RXs. PATIENT SAYS SHE USES HERBAL ADRENAL AND WAGNER TONIC. ) As the person ultimately responsible for medication therapy, providers are able to order a medication from an existing home medication list in [facility] via the "Reconcile Routine" prior to Confirmation of that medication by sales support administrator. Such practice is discouraged except when the physician, in their clinical judgment, deems that a medical need exists for a medication without regard to previous use.
[2020-05-30] MEDS ORDERED: TRANEXAMIC ACID 1,000 MG/10 ML VIAL IV ONE (14:50)
[2020-05-30] MEDS ORDERED: fentaNYL 100 MCG/2 ML VIAL IVP ONE (14:50)
[2020-05-30] MEDS ORDERED: ONDANSETRON 4 MG/2 ML VIAL IVP ONE (14:50)
[2020-05-30] MEDS ORDERED: KETAMINE 500 MG/10 ML VIAL IVP ONE (14:50)
[2020-05-30] MEDS ORDERED: SODIUM CHLORIDE 0.9% 100ML 100 ML IV ONE (14:50)
[2020-05-30] MEDS ORDERED: PHENYLEPHRINE 10 MG/ML VIAL IV ONE (14:50)
[2020-05-30] MEDS ORDERED: PROPOFOL 200 MG/20 ML VIAL IVP ONE (14:50)
--- NOTE | 2020-05-30 17:31 | OPERATIVE REPORT ---
Operative Report - General Admit Date: 05/30/20 Procedure Date: 05/30/20 Planned Procedure: Displaced femoral neck fracture right hip Pre-Op Diagnosis: Displaced femoral neck fracture right hip Procedure Performed: Hemiarthroplasty right hip using Peters nephew noncemented #15 Synergy femoral component, standard offset, +0 neck, 46 mm unipolar head Post Op Diagnosis: Same as preop - Procedure Note Primary Surgeon: Dr. Yosef Darby Secondary Surgeon: MEERA Jean Anesthesia Provider: Dr. Martínez Jones Anesthesia Technique: General ET tube, Regional block Estimated Blood Loss (mL): 350 Indications: This is an 89-year-old woman with an ambulatory fall that occurred at home today. She lives alone and fell when using a cane. She describes a mechanical fall with isolated injury to right hip. She had pain and deformity after the fall to the right upper thigh. She has had previous fracture of the left hip about 4 years ago and this was treated with a left hip hemiarthroplasty. She now has shortening and external rotation deformity of the right leg and radiographs which show a displaced mid cervical femoral neck fracture of the right hip. She was evaluated by hospitalist preoperatively. An informed consent was obtained from patient and daughter agreeing to the surgical procedure. Findings: There was a displaced femoral neck fracture of the right hip. The femoral head articular cartilage looked relatively normal as well as the cartilage to the acetabulum. - Other Other Information/Narrative: The patient was brought to the operating room, placed in the supine position and was given a general endotracheal anesthesia. She was placed in the lateral decubitus position with the right hip facing superiorly and was secured in this position using a pegboard and post. The right hip and right lower extremity were prepped and draped in a sterile manner in the usual fashion. A timeout procedure was performed by the entire operating room team and all were in agreement. A straight lateral incision was made over the lateral aspect of the right hip and trochanter. The subcutaneous tissue and fascia ace were split in line with the incision. An initial self-retaining retractor was inserted. The anterior third of the gluteus medius was divided with electrocautery at the myotendinous junction. The anterior hip capsule was exposed in a T-shaped fashion. The femoral head was removed with a corkscrew. The size of the femoral head was measured with calipers as being 46 mm. The right leg was placed in an anterior sterile pocket. The femoral canal was opened with a box osteotome. The femoral canal was progressively opened with reamers up to a #15. Femoral broaching was then carried out with the final seating of a #15. A t rial reduction was performed and was found to be stable. A permanent #15 Synergy press-fit femoral component was inserted and seated to the calcar. This gave an excellent fit to push and pull as well as rotation. A 46 mm unipolar head was reduced on the femoral trunnion. The hip was reduced and was stable to motion and had good leg length tension. A 3-minute dilute Betadine lavage was performed to the right hip. The hip capsule was closed with #1 Vicryl. The gluteus medius and minimus were repaired with #1 Vicryl at the myotendinous junction. The fascia ace was closed with 0 Vicryl. The subcutaneous tissue was closed with 2-0 Vicryl. The skin was closed with 3-0 Monocryl subcuticular stitch. Dermabond was applied to the skin, allowed to dry and then a silver impregnated dressing was applied to the skin incision. Patient tolerated procedure well. There was good stability of the right hip and no clinical deformity of the right leg at the end the procedure. A physician clinical medical assistant was utilized during surgery to help ensure a good outcome and including prepping and draping, retraction and protection of neurovascular structures, wound closure and dressing.
[2020-05-30] MEDS ORDERED: LACTATED RINGERS 800 ML IV ONE (17:40)
[2020-05-30] MEDS ORDERED: ACETAMINOPHEN 325 MG TABLET PO PRN (17:41)
[2020-05-30] MEDS ORDERED: oxyCODONE 5 MG TABLET PO PRN (17:41)
--- NOTE | 2020-05-30 17:58 | ANESTHESIA POST OP EVALUATION ---
Anesthesia Post Eval - Post Anesthesia Eval Vitals: Last Vital Signs Temp 36.3 C L 05/30/20 17:55 Pulse 70 05/30/20 17:55 Resp 12 05/30/20 17:55 BP 129/66 05/30/20 17:55 Pulse Ox 97 05/30/20 17:55 CV Function Including HR & BP: positive: Stable Pain Control: positive: Satisfactory Nausea & Vomiting: positive: Negative Mental Status: positive: Baseline Respiratory Status: Airway Patent Hydration Status: Satisfactory Anesthesia Complications: positive: None
[2020-05-30] MEDS: fentaNYL 12 MCG PATCH TOP SCH (18:25)
[2020-05-30] MEDS: SODIUM CHLORIDE FLUSH 0.9% 10 ML SYRINGE IVP SCH (18:42)
[2020-05-30] MEDS: ONDANSETRON 4 MG/2 ML VIAL IVP PRN (21:59)
[2020-05-31] MEDS: SODIUM CHLORIDE FLUSH 0.9% 10 ML SYRINGE IVP SCH ×6 (00:08→17:21)
[2020-05-31] MEDS: ceFAZolin 2 GM in SODIUM CHLORIDE 0.9% 100ML 100 ML IV SCH ×2 (01:19→08:45)
[2020-05-31] MEDS: SODIUM CHLORIDE 0.9% 1,000 ML IV SCH ×3 (01:19→15:34)
[2020-05-31] MEDS: ACETAMINOPHEN 325 MG TABLET PO PRN (01:39)
[2020-05-31] MEDS: ONDANSETRON 4 MG/2 ML VIAL IVP PRN ×2 (01:49→08:43)
[2020-05-31] MEDS: PANTOPRAZOLE 40 MG TABLET PO SCH (02:40)
[2020-05-31 05:26] LABS: BASOPHILS % (AUTO) 0.2 %; EOSINOPHILS % (AUTO) 0.2 %; HGB - HEMOGLOBIN 9.6 g/dL (12.0-16.0); LYMPHOCYTES # (AUTO) 0.5 10^3/uL (1.5-3.5); LYMPHOCYTES % (AUTO) 3.8 %; MEAN CORPUSCULAR HEMOGLOBIN 30.1 pg (27.0-31.0); MEAN CORPUSCULAR HGB CONC 32.5 g/dL (32.0-36.0); MEAN CORPUSCULAR VOLUME 92.5 fL (81.0-99.0); MEAN PLATELET VOLUME 9.9 fL (7.9-10.8); MONOCYTES # (AUTO) 0.8 10^3/uL (0.0-1.0); MONOCYTES % (AUTO) 6.3 %; NEUTROPHILS # (AUTO) 10.9 10^3/uL (1.5-6.6); NEUTROPHILS % (AUTO) 89.2 %; PLT - PLATELET COUNT 216 10^3/uL (130-450); RED BLOOD COUNT 3.19 10^6/uL (4.20-5.40); RED CELL DISTRIBUTION WIDTH 13.1 % (12.0-15.0); WHITE BLOOD COUNT 12.2 x10^3/uL (4.8-10.8)
[2020-05-31 05:30] LABS: CALCIUM 8.6 mg/dL (8.5-10.3); CREATININE 0.8 mg/dL (0.4-1.0); MAGNESIUM 2.1 mg/dL (1.7-2.8); PHOSPHORUS 3.6 mg/dL (2.5-4.6)
[2020-05-31] MEDS ORDERED: ASPIRIN 325 MG TABLET PO SCH (08:00)
[2020-05-31] MEDS ORDERED: ENOXAPARIN 40 MG/0.4 ML SYRINGE SUBQ SCH ×2 (09:00→11:00)
[2020-05-31] MEDS: oxyCODONE 5 MG TABLET PO PRN (10:25)
--- NOTE | 2020-05-31 11:25 | ADVANCE CARE PLANNING NOTE ---
Advance Care Planning - Planning Encounter Date: 05/31/20 Time: 11:24 Purpose: advanced care plan for pt Parties in Attendance: pt, pt's daughter Kwaku, and me Decisional Capacity of the Patient: pt has the capacity to make her decision and family help pt to make decisions. - Encounter Subjective/Patient's Story: This is day 1 status post of right hip repair. Patient denies fever, chest pain, shortness of breathing. She report right lower extremity has some pain and numbness, And she reported she recognized she had a surgery on yesterday on right hip repair. I also reported pt's right lower extremity pain and numbness to orthopedics surgeon at the office. Patient report she had nose bleeding every time she take aspirin, so she declined to get aspirin but agreeing to take Lovenox. Patient and patient's daughter would like to be discharged to home, not going to skilled nurse facility after d/c from the hospital. 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 Unfortunately we did not have processing mgr meds in her home meds list. I also called patient son Rene at [phone] and updated patient medical condition to him, answered all his concerns and questions by the phone. Later ptPatient's troponin come back has 570. New EKG compared with yesterday EKG show V4 and III segment has ST depression. It indicate pt had NSTEM. ECHO is pending now. I discussed heart attack new conditions with pt's daughter now. she will explain to her mother and let her mother take medications as well. Also discussed with pt's daughter Kwaku, the The possibility of deterioration from heart attack, beside of advanced age, s/p of surgery, medical noncompliant. pt did not compliance her BP medications, per her daughter report, at least pt did not take her Lisinopril medications at home because of pt's believe of processing mgr. pt's daughter state she understood the situation, and she emphasized patient is DNR, do not resuscitation CODE STATUS. Goals of Care: stabilization and comfort with improvement. Plan: We will continue treat patient NSTEMI heart attack now, we will continue care of pt's status post of surgery, Updated patient medical condition to her family and to discuss the care plan with the family. Code Status: Do Not Attempt Resuscitation Time spent on advance care plannin
--- NOTE | 2020-05-31 11:30 | PROVIDER PROGRESS NOTE ---
Subjective - Prog Note Date Prog Note Date: 05/31/20 - Subjective Pt reports feeling: Improved Subjective: This is day 1 status post of right hip repair. Patient denies fever, chest pain, shortness of breathing. She report right lower extremity has some pain and numbness, And she reported she recognized she had a surgery on yesterday on right hip repair. I also reported pt's right lower extremity pain and numbness to orthopedics surgeon at the office. Patient report she had nose bleeding every time she take aspirin, so she declined to get aspirin but agreeing to take Lovenox. Patient and patient's daughter would like to be discharged to home, not going to skilled nurse facility after d/c from the hospital. 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 Unfortunately we did not have script editor meds in her home meds list. I also called patient son Rene at [phone] and updated patient medical condition to him, answered all his concerns and questions by the phone. Later ptPatient's troponin come back has 570. New EKG compared with yesterday EKG show V4 and III segment has ST depression. It indicate pt had NSTEM. ECHO is pending now. I discussed heart attack new conditions with pt's daughter now. she will explain to her mother and let her mother take medications as well. Also discussed with pt's daughter Kwaku, the The possibility of deterioration from heart attack, beside of advanced age, s/p of surgery, medical noncompliant. pt did not compliance her BP medications, per her daughter report, at least pt did not take her Lisinopril medications at home because of pt's believe of naturopat h. pt's daughter state she understood the situation, and she emphasized patient is DNR, do not resuscitation CODE STATUS. Current Medications - Current Medications Current Medications: Active Medications Acetaminophen (Tylenol) 650 mg PO Q4HR PRN PRN Reason: Pain 1 to 4 Last Admin: 05/31/20 01:39 Dose: 650 mg Documented by: Acetaminophen (Tylenol) 650 - 975 mg PO Q4HR PRN PRN Reason: PAIN Calcium Carbonate/Glycine (Tums) 500 mg PO BID [facility] Enoxaparin Sodium (Lovenox) 40 mg SUBQ DAILY [facility] Last Admin: 05/31/20 11:21 Dose: 40 mg Documented by: Fentanyl (Duragesic) 1 patch TOP Q3D [facility] Last Admin: 05/30/20 18:25 Dose: Not Given Documented by: Hydralazine HCl (Apresoline Inj) 10 mg IVP Q4H PRN PRN Reason: Hypertensive Emergency Acetaminophen (Ofirmev) 100 mls @ 400 mls/hr IV Q6HR PRN PRN Reason: PAIN Sodium Chloride (Normal Saline 0.9%) 1,000 mls @ 83.333 mls/hr IV .Q12H [facility] Stop: 06/01/20 07:59 Last Admin: 05/31/20 08:55 Dose: 83.333 mls/hr Documented by: Ketorolac Tromethamine (Toradol Inj (15mg)) 15 mg IVP Q6HR PRN PRN Reason: PAIN Stop: 06/04/20 10:16 Last Admin: 05/31/20 08:43 Dose: 15 mg Documented by: Ondansetron HCl (Zofran Inj) 4 mg IVP Q6HR PRN PRN Reason: Nausea / Vomiting Last Admin: 05/31/20 08:43 Dose: 4 mg Documented by: Ondansetron HCl (Zofran Inj) 4 mg IVP Q6HR PRN PRN Reason: Nausea / Vomiting Oxycodone HCl (Roxicodone) 5 mg PO Q4HR PRN PRN Reason: Pain 5 to 7 Last Admin: 05/31/20 10:25 Dose: 5 mg Documented by: Pantoprazole Sodium (Protonix) 40 mg PO QDAC [facility] Last Admin: 05/31/20 02:40 Dose: Not Given Documented by: Sodium Chloride (Normal Saline Flush 0.9%) 10 ml IVP PRN PRN PRN Reason: NEEDED PER PROVIDER ORDERS Last Admin: 05/31/20 01:49 Dose: 10 ml Documented by: Sodium Chloride (Normal Saline Flush 0.9%) 10 ml IVP 0100,0900,1700 [facility] Last Admin: 05/31/20 08:45 Dose: Not Given Documented by: Sodium Chloride (Normal Saline Flush 0.9%) 10 ml IVP 0100,0900,1700 [facility] Last Admin: 05/31/20 08:46 Dose: Not Given Documented by: Sodium Chloride (Normal Saline Flush 0.9%) 10 ml IVP PRN PRN PRN Reason: NEEDED PER PROVIDER ORDERS No Known Home Medications 05/30/20 Objective - Vital Signs/Intake & Output Vital Signs: Vital Signs x48h Temp Pulse Resp BP Pulse Ox 05/31/20 08:00 36.5 C 84 16 121/57 L 95 05/31/20 04:18 36.6 C 78 18 118/53 L 93 Intake & Output: Intake & Output 05/28/20 05/29/20 05/30/20 05/31/20 23:59 23:59 23:59 23:59 Intake Total 2150 1440 Output Total 2275 325 Balance -125 1115 - Objective General Appearance: positive: No acute distress, Alert. negative: Lethargic Eyes Bilateral: positive: Normal inspection, PERRL, No lid inflammation ENT: positive: ENT inspection nml, No signs of dehydration. negative: Purulent nasal drainage, Dry mucous membranes Neck: positive: Nml inspection, Trachea midline. negative: Thyromegaly, Stiff neck, Tracheal deviation Respiratory: positive: Chest non-tender, No respiratory distress, Breath sounds nml. negative: Wheezes, Rales, Rhonchi Cardiovascular: positive: Regular rate & rhythm, Systolic murmur, Diastolic murmur. negative: No murmur, Tachycardia, Bradycardia Peripheral Pulses: 2+ Radial (R), 2+ Radial (L), 2+ Dorsalis pedis (R), 2+ Dorsalis pedis (L) Abdomen: positive: Non-tender, Nml bowel sounds, No distention. negative: Tenderness, Guarding, Rebound Back: positive: Nml inspection Skin: positive: Color nml, No rash, Warm, Dry. negative: Cyanosis, Diaphoresis, Pallor Extremities: positive: Nml appearance, Other (intact neurovascular on right lower extremity.). negative: Calf tenderness, Raysa's sign/cords Neurologic/Psychiatric: positive: Oriented x3, Sensation nml, Mood/affect nml. negative: Weakness, Sensory loss, Facial droop, Slurred/abnml speech, Depressed mood/affect - Lab Results Fish Bones: 05/31/20 13:45 05/31/20 05:00 Other Labs: Lab Results x24hrs 05/31/20 05/31/20 05/31/20 Range/Units 05:00 05:00 05:00 WBC 12.2 H (4.8-10.8) x10^3/uL RBC 3.19 L (4.20-5.40) 10^6/uL Hgb 9.6 L (12.0-16.0) g/dL Hct 29.5 L (37.0-47.0) % MCV 92.5 (81.0-99.0) fL MCH 30.1 (27.0-31.0) pg MCHC 32.5 (32.0-36.0) g/dL RDW 13.1 (12.0-15.0) % Plt Count 216 (130-450) 10^3/uL MPV 9.9 (7.9-10.8) fL Neut # (Auto) 10.9 H (1.5-6.6) 10^3/uL Lymph # (Auto) 0.5 L (1.5-3.5) 10^3/uL [place] # (Auto) 0.8 (0.0-1.0) 10^3/uL Eos # (Auto) 0.0 (0.0-0.7) 10^3/uL Baso # (Auto) 0.0 (0.0-0.1) 10^3/uL Absolute Nucleated RBC 0.00 x10^3/uL Nucleated RBC % 0.0 /100WBC PT (9.9-12.6) secs INR (0.8-1.2) Sodium 129 L (135-145) mmol/L Potassium 3.9 (3.5-5.0) mmol/L Chloride 97 L (101-111) mmol/L Carbon Dioxide 22 (21-32) mmol/L Anion Gap 10.0 (6-13) BUN 20 (6-20) mg/dL Creatinine 0.8 (0.4-1.0) mg/dL Estimated GFR (MDRD) 68 L (>89) Glucose 130 H (70-100) mg/dL Calcium 8.6 (8.5-10.3) mg/dL Phosphorus 3.6 (2.5-4.6) mg/dL Magnesium 2.1 (1.7-2.8) mg/dL Troponin I High Sens 89.8 H* (2.3-14.8) ng/L Urine Color Urine Clarity (CLEAR) Urine pH (5.0-7.5) PH Ur Specific Agency (1.002-1.030) Urine Protein (NEGATIVE) mg/dL Urine Glucose (UA) (NEGATIVE) mg/dL Urine Ketones (NEGATIVE) mg/dL Urine Occult Blood (NEGATIVE) Urine Nitrite (NEGATIVE) Urine Bilirubin (NEGATIVE) Urine Urobilinogen (NORMAL) E.U./dL Ur Leukocyte Esterase (NEGATIVE) Urine RBC (0-5) /HPF Urine WBC (0-5) /HPF Ur Squamous Epith Cells (<= Few) Urine Bacteria (None Seen) /HPF Ur Microscopic Review Urine Culture Comments 05/30/20 05/30/20 Range/Units 13:10 12:28 WBC (4.8-10.8) x10^3/uL RBC (4.20-5.40) 10^6/uL Hgb (12.0-16.0) g/dL Hct (37.0-47.0) % MCV (81.0-99.0) fL MCH (27.0-31.0) pg MCHC (32.0-36.0) g/dL RDW (12.0-15.0) % Plt Count (130-450) 10^3/uL MPV (7.9-10.8) fL Neut # (Auto) (1.5-6.6) 10^3/uL Lymph # (Auto) (1.5-3.5) 10^3/uL [place] # (Auto) (0.0-1.0) 10^3/uL Eos # (Auto) (0.0-0.7) 10^3/uL Baso # (Auto) (0.0-0.1) 10^3/uL Absolute Nucleated RBC x10^3/uL Nucleated RBC % /100WBC PT 11.7 (9.9-12.6) secs INR 1.0 (0.8-1.2) Sodium (135-145) mmol/L Potassium (3.5-5.0) mmol/L Chloride (101-111) mmol/L Carbon Dioxide (21-32) mmol/L Anion Gap (6-13) BUN (6-20) mg/dL Creatinine (0.4-1.0) mg/dL Estimated GFR (MDRD) (>89) Glucose (70-100) mg/dL Calcium (8.5-10.3) mg/dL Phosphorus (2.5-4.6) mg/dL Magnesium (1.7-2.8) mg/dL Troponin I High Sens (2.3-14.8) ng/L Urine Color YELLOW Urine Clarity HAZY (CLEAR) Urine pH 7.5 (5.0-7.5) PH Ur Specific Agency 1.015 (1.002-1.030) Urine Protein NEGATIVE (NEGATIVE) mg/dL Urine Glucose (UA) NEGATIVE (NEGATIVE) mg/dL Urine Ketones NEGATIVE (NEGATIVE) mg/dL Urine Occult Blood LARGE H (NEGATIVE) Urine Nitrite NEGATIVE (NEGATIVE) Urine Bilirubin NEGATIVE (NEGATIVE) Urine Urobilinogen 0.2 (NORMAL) (NORMAL) E.U./dL Ur Leukocyte Esterase NEGATIVE (NEGATIVE) Urine RBC TNTC H (0-5) /HPF Urine WBC 0-3 (0-5) /HPF Ur Squamous Epith Cells NONE SEEN (<= Few) Urine Bacteria None Seen (None Seen) /HPF Ur Microscopic Review INDICATED Urine Culture Comments NOT INDICATED ABX Reporting Has patient been on IV antibiotics over the past 48 hours?: No Sepsis Event Note (H) - Evaluation Current Stage of Sepsis: Ruled out Assessment/Plan - Problem List (1) NSTEMI (non-ST elevated myocardial infarction) Impression: 99,Patient had significantly elevated troponin of 570, New EKG show v4 and III segments had ST depression.Echo is pending.Patient had a history of cardiac murmur and Hypertension. But the patient did not take his blood pressure medicine because she believed naturopaths, Per patient's daughter Jacqueline report. Patient also report she did not take lisinopril in the home. Now patient blood pressure is relatively stable, But the patient had a significantly reduce of her urine output, 475cc now. Patient only had a few bites of her meal. Discussed with pt's daughter for the possibility of deterioration from his heart attack and the complication s/p of surgery. Patient's daughter state she understand, she emphasized patient CODE STATUS is DNR. We will continue check serial troponin test, will start with Lovenox twice daily, metoprolol, Lipitor, continue monitoring coordinator and vital signs monitor, check lipid panel. (2) Displaced fracture of right femoral neck Conclusion/Plan: 99, continue pain control, hold physical therapist on today Because of NSTEMI Patient had ground level fall in the home without loss conscious or syncope.Patient denies chest pain or shortness of breathing. X-ray show patient had a acute displaced right humeral neck fracture. Surgeon was called, Plan to have surgery on this afternoon. We will continue pain control, continue consult with surgeon. We will follow-up for s/p of surgery (3) Encounter for preoperative assessment for noncoronary cardiac surgery Conclusion/Plan: Patient denies any hx of cardiac events or history of CAD. But the patient had cardiac cardiac murmur. We will order PT/INR, EKG, echo before surgery. Preoperation cardiac events risk 0.4% per Jackson's criteria for estimated rate of myocardial infarction, pulmonary edema, ventricular fibrillation, cardiac arrest or completely heart block. (4) Hypertensive urgency Conclusion/Plan: 99, resolved, patient blood pressure is a relatively stable, Started on intravenous IV fluids gently. 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 we will check BP and pain control for pt. surgeon was notified pt had high BP. Continue hydralazine as needed, continue vital signs monitor and monitoring coordinator, continue pain control. (5) Heart murmur Conclusion/Plan: 99, echo is pending. Patient reported she had murmur in the past, patient had a similar surgery on 2014. We will check echo for patient, surgeon was notified patient had a cardiac murmur as well. Patient denies history of CAD, patient denies syncope or loss conscious in this fall. (6) Hyponatremia Conclusion/Plan: 99, sodium today at 129, is a slightly tread down from yesterday 131, It is likely Hypovolemia with the hyponatremia. start with gently IVF Patient had sodium 131, it is likely prerenal azotemia, and hypovolemic and hyponatremia. 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 Advised the patient for medical compliance, patient agree.
[2020-05-31] MEDS ORDERED: ENOXAPARIN 30 MG/0.3 ML SYRINGE SUBQ SCH (13:00)
[2020-05-31] MEDS: METOPROLOL TARTRATE 25 MG TABLET PO SCH ×2 (13:32→20:42)
[2020-05-31 13:55] LABS: HGB - HEMOGLOBIN 8.7 g/dL (12.0-16.0)
--- NOTE | 2020-05-31 14:49 | PROVIDER PROGRESS NOTE ---
Subjective - General Admit Date: 05/30/20 Procedure Date: 05/30/20 Post Op Days: 1 Procedure Performed: Hemiarthroplasty right hip - Review of Systems Wound/Incisions: positive: Dressing dry and intact General: negative: Other (Pain is well controlled right hip) Musculoskeletal: negative: Other (Her hip pain is improved and well-controlled since surgery yesterday.) Skin: positive: No symptoms Neurological: Psychiatric: positive: No symptoms Objective - Patient Data Vital Signs: Vital Signs x48h Temp Pulse Pulse Pulse Resp BP BP 05/31/20 13:55 36.7 C 74 16 118/54 L 05/31/20 13:32 114/52 L 05/31/20 12:25 36.7 C 90 18 104/60 05/31/20 11:15 89 83 05/31/20 08:00 36.5 C 84 16 121/57 L BP BP Pulse Ox 05/31/20 13:55 92 05/31/20 13:32 05/31/20 12:25 92 05/31/20 11:15 104/60 116/53 L 05/31/20 08:00 95 Weight: Weight 05/29/20 05/30/20 05/31/20 23:59 23:59 23:59 Weight (kg) 68 kg Intake & Output: Intake and Output Totals x24h 05/29/20 05/30/20 05/31/20 23:59 23:59 23:59 Intake Total 2150 1540 Output Total 2275 475 Balance -125 1065 - Lab Results Lab Results: 05/31/20 13:45 05/31/20 05:00 Other Lab Results: Lab Results x24hrs 05/31/20 05/31/20 05/31/20 Range/Units 13:45 11:16 05:00 WBC (4.8-10.8) x10^3/uL RBC (4.20-5.40) 10^6/uL Hgb 8.7 L (12.0-16.0) g/dL Hct 26.9 L (37.0-47.0) % MCV (81.0-99.0) fL MCH (27.0-31.0) pg MCHC (32.0-36.0) g/dL RDW (12.0-15.0) % Plt Count (130-450) 10^3/uL MPV (7.9-10.8) fL Neut # (Auto) (1.5-6.6) 10^3/uL Lymph # (Auto) (1.5-3.5) 10^3/uL [place] # (Auto) (0.0-1.0) 10^3/uL Eos # (Auto) (0.0-0.7) 10^3/uL Baso # (Auto) (0.0-0.1) 10^3/uL Absolute Nucleated RBC x10^3/uL Nucleated RBC % /100WBC Sodium 129 L (135-145) mmol/L Potassium 3.9 (3.5-5.0) mmol/L Chloride 97 L (101-111) mmol/L Carbon Dioxide 22 (21-32) mmol/L Anion Gap 10.0 (6-13) BUN 20 (6-20) mg/dL Creatinine 0.8 (0.4-1.0) mg/dL Estimated GFR (MDRD) 68 L (>89) Glucose 130 H (70-100) mg/dL Calcium 8.6 (8.5-10.3) mg/dL Phosphorus 3.6 (2.5-4.6) mg/dL Magnesium 2.1 (1.7-2.8) mg/dL Troponin I High Sens 574.0 H* (2.3-14.8) ng/L 05/31/20 05/31/20 Range/Units 05:00 05:00 WBC 12.2 H (4.8-10.8) x10^3/uL RBC 3.19 L (4.20-5.40) 10^6/uL Hgb 9.6 L (12.0-16.0) g/dL Hct 29.5 L (37.0-47.0) % MCV 92.5 (81.0-99.0) fL MCH 30.1 (27.0-31.0) pg MCHC 32.5 (32.0-36.0) g/dL RDW 13.1 (12.0-15.0) % Plt Count 216 (130-450) 10^3/uL MPV 9.9 (7.9-10.8) fL Neut # (Auto) 10.9 H (1.5-6.6) 10^3/uL Lymph # (Auto) 0.5 L (1.5-3.5) 10^3/uL [place] # (Auto) 0.8 (0.0-1.0) 10^3/uL Eos # (Auto) 0.0 (0.0-0.7) 10^3/uL Baso # (Auto) 0.0 (0.0-0.1) 10^3/uL Absolute Nucleated RBC 0.00 x10^3/uL Nucleated RBC % 0.0 /100WBC Sodium (135-145) mmol/L Potassium (3.5-5.0) mmol/L Chloride (101-111) mmol/L Carbon Dioxide (21-32) mmol/L Anion Gap (6-13) BUN (6-20) mg/dL Creatinine (0.4-1.0) mg/dL Estimated GFR (MDRD) (>89) Glucose (70-100) mg/dL Calcium (8.5-10.3) mg/dL Phosphorus (2.5-4.6) mg/dL Magnesium (1.7-2.8) mg/dL Troponin I High Sens 89.8 H* (2.3-14.8) ng/L - Current Medications Current Medications: Current Medications Generic Name Dose Route Start Last Admin Trade Name Freq PRN Reason Stop Dose Admin Acetaminophen 650 mg 05/30/20 10:08 05/31/20 01:39 Tylenol PO 650 mg Q4HR PRN Administration Pain 1 to 4 Enoxaparin Sodium 30 mg 05/31/20 13:00 05/31/20 13:33 Lovenox SUBQ 05/31/20 18:00 30 mg ONCE [facility]IL[facility] Administration Fentanyl 1 patch 05/30/20 14:00 05/30/20 18:25 Duragesic TOP Not Given Q3D [facility] Sodium Chloride 1,000 mls @ 83.333 mls/hr 05/31/20 08:00 05/31/20 08:55 Normal Saline 0.9% IV 06/01/20 07:59 83.333 mls/hr .Q12H [facility]IL[facility] Administration Metoprolol Tartrate 12.5 mg 05/31/20 13:00 05/31/20 13:32 Lopressor PO 12.5 mg BID [facility]IL[facility] Administration Ondansetron HCl 4 mg 05/30/20 10:08 05/31/20 08:43 Zofran Inj IVP 4 mg Q6HR PRN Administration Nausea / Vomiting Oxycodone HCl 5 mg 05/30/20 10:08 05/31/20 10:25 Roxicodone PO 5 mg Q4HR PRN Administration Pain 5 to 7 Pantoprazole Sodium 40 mg 05/31/20 07:00 05/31/20 02:40 Protonix PO Not Given QDAC [facility] Sodium Chloride 10 ml 05/30/20 10:08 05/31/20 01:49 Normal Saline Flush 0.9% IVP 10 ml PRN PRN Administration NEEDED PER PROVIDER ORDERS Sodium Chloride 10 ml 05/30/20 17:00 05/31/20 08:45 Normal Saline Flush 0.9% IVP Not Given 0100,0900,1700 [facility] Sodium Chloride 10 ml 05/31/20 01:00 05/31/20 08:46 Normal Saline Flush 0.9% IVP Not Given 0100,0900,1700 [facility] Impression/Plan - Problem List Problem List: Status post hemiarthroplasty Continue with physical and Occupational Therapy Possibility of myocardial infarction noted per hospitalist notes.
[2020-05-31] MEDS: ACETAMINOPHEN 1,000 MG/100 ML 100 ML IV PRN (15:33)
--- NOTE | 2020-05-31 16:48 | XRAY Report ---
PROCEDURE: Chest 1 View X-Ray INDICATIONS: sob TECHNIQUE: One view of the chest was acquired. COMPARISON: 01/11/2019. FINDINGS: Surgical changes and devices: None. Lungs and pleura: There is bilateral pulmonary edema with a small left pleural effusion. Increased l eft basilar linear opacities are compatible with atelectasis or developing consolidation. Mediastinum: Mediastinal contours appear prominent which may be due to portable technique. Heart si ze is mildly enlarged. Bones and chest wall: No suspicious bony lesions. Overlying soft tissues appear unremarkable. IMPRESSION: 1. Pulmonary edema with mild cardiomegaly and small left pleural effusion suggestive of congestive he art failure. 2. Left basilar opacities consistent with compressive atelectasis or developing consolidation. Reviewed by: Jayden Rodriguez MD on 05/31/2020 4:47 PM PDT Approved by: Jayden Rodriguez MD on 05/31/2020 4:47 PM PDT Station ID: [id number]
[2020-05-31] MEDS ORDERED: FUROSEMIDE 20 MG/2 ML VIAL IVP SCH (18:00)
[2020-05-31] MEDS ORDERED: LORazepam 0.5 MG TABLET PO PRN (18:20)
[2020-05-31] MEDS: CALCIUM CARBONATE CHEW 500 MG TABLET PO SCH (20:42)
[2020-05-31] MEDS: ATORVASTATIN 40 MG TABLET PO SCH (20:42)
[2020-05-31] MEDS: ENOXAPARIN 60 MG/0.6 ML SYRINGE SUBQ SCH (20:45)
[2020-06-01] MEDS: SODIUM CHLORIDE FLUSH 0.9% 10 ML SYRINGE IVP SCH ×6 (00:02→17:26)
[2020-06-01] MEDS: oxyCODONE 5 MG TABLET PO PRN ×4 (02:30→21:05)
[2020-06-01 05:32] LABS: BASOPHILS # (AUTO) 0.1 10^3/uL (0.0-0.1); BASOPHILS % (AUTO) 0.5 %; EOSINOPHILS # (AUTO) 0.2 10^3/uL (0.0-0.7); EOSINOPHILS % (AUTO) 2.3 %; HGB - HEMOGLOBIN 8.2 g/dL (12.0-16.0); LYMPHOCYTES # (AUTO) 0.8 10^3/uL (1.5-3.5); LYMPHOCYTES % (AUTO) 7.5 %; MEAN CORPUSCULAR HEMOGLOBIN 29.5 pg (27.0-31.0); MEAN CORPUSCULAR HGB CONC 32.7 g/dL (32.0-36.0); MEAN CORPUSCULAR VOLUME 90.3 fL (81.0-99.0); MONOCYTES # (AUTO) 1.1 10^3/uL (0.0-1.0); MONOCYTES % (AUTO) 10.8 %; NEUTROPHILS # (AUTO) 7.9 10^3/uL (1.5-6.6); NEUTROPHILS % (AUTO) 78.5 %; PLT - PLATELET COUNT 180 10^3/uL (130-450); RED BLOOD COUNT 2.78 10^6/uL (4.20-5.40); RED CELL DISTRIBUTION WIDTH 13.2 % (12.0-15.0); WHITE BLOOD COUNT 10.1 x10^3/uL (4.8-10.8)
[2020-06-01 05:39] LABS: CALCIUM 8.4 mg/dL (8.5-10.3); CREATININE 0.8 mg/dL (0.4-1.0)
[2020-06-01 05:48] LABS: CHOL/HDL RATIO 2.7 (<4.4); CHOLESTEROL 169 mg/dL; HDL CHOLESTEROL 63 mg/dL; LDL CHOLESTEROL,CALCULATED 92 mg/dL; LDL/HDL RATIO 1.5 (<4.4); VLDL CHOLESTEROL 14 mg/dL
[2020-06-01] MEDS: PANTOPRAZOLE 40 MG TABLET PO SCH (06:03)
--- NOTE | 2020-06-01 07:54 | PROVIDER PROGRESS NOTE ---
Subjective - General Admit Date: 05/30/20 Procedure Date: 05/30/20 Post Op Days: 2 Procedure Performed: Hemiarthroplasty right hip - Review of Systems Wound/Incisions: positive: Dressing dry and intact General: negative: Other (She is alert, pain is controlled with medication, krishna es chest pain or shortness of breath, communicates well) Musculoskeletal: negative: Other (Her hip pain is improved and well-controlled since surgery yesterday.) Skin: positive: No symptoms Psychiatric: positive: No symptoms - Other Other Information/Narrative: She is status post hemiarthroplasty of the hip Physical and Occupational Therapy have been ordered She has sustained a myocardial infarction with very little symptoms clinically. This is being managed by her hospitalist. She is likely to need group home facility post discharge for both orthopedicAnd cardiac reasons Objective - Patient Data Vital Signs: Vital Signs x48h Temp Pulse Resp BP Pulse Ox 06/01/20 05:00 36.3 C L 78 16 134/59 H 94 06/01/20 00:00 36.9 C 69 16 131/60 H 95 Weight: Weight 05/30/20 05/31/20 06/01/20 23:59 23:59 23:59 Weight (kg) 68 kg Intake & Output: Intake and Output Totals x24h 05/30/20 05/31/20 06/01/20 23:59 23:59 23:59 Intake Total 2150 2583.054 Output Total 2275 1075 300 Balance -125 1508.054 -300 - Lab Results Lab Results: 06/01/20 05:15 06/01/20 05:15 Other Lab Results: Lab Results x24hrs 06/01/20 06/01/20 06/01/20 Range/Units 05:15 05:15 05:15 WBC 10.1 (4.8-10.8) x10^3/uL RBC 2.78 L (4.20-5.40) 10^6/uL Hgb 8.2 L (12.0-16.0) g/dL Hct 25.1 L (37.0-47.0) % MCV 90.3 (81.0-99.0) fL MCH 29.5 (27.0-31.0) pg MCHC 32.7 (32.0-36.0) g/dL RDW 13.2 (12.0-15.0) % Plt Count 180 (130-450) 10^3/uL MPV 10.0 (7.9-10.8) fL Neut # (Auto) 7.9 H (1.5-6.6) 10^3/uL Lymph # (Auto) 0.8 L (1.5-3.5) 10^3/uL [place] # (Auto) 1.1 H (0.0-1.0) 10^3/uL Eos # (Auto) 0.2 (0.0-0.7) 10^3/uL Baso # (Auto) 0.1 (0.0-0.1) 10^3/uL Absolute Nucleated RBC 0.00 x10^3/uL Nucleated RBC % 0.0 /100WBC Sodium 130 L (135-145) mmol/L Potassium 3.6 (3.5-5.0) mmol/L Chloride 99 L (101-111) mmol/L Carbon Dioxide 24 (21-32) mmol/L Anion Gap 7.0 (6-13) BUN 20 (6-20) mg/dL Creatinine 0.8 (0.4-1.0) mg/dL Estimated GFR (MDRD) 68 L (>89) Glucose 90 (70-100) mg/dL Calcium 8.4 L (8.5-10.3) mg/dL Troponin I High Sens (2.3-14.8) ng/L Triglycerides 68 ( - 149) mg/dL Cholesterol 169 ( - 199) mg/dL LDL Cholesterol, Calc 92 ( - 129) mg/dL VLDL Cholesterol 14 mg/dL HDL Cholesterol 63 (60 - ) mg/dL LDL/HDL Ratio 1.5 (<4.4) Cholesterol/HDL Ratio 2.7 (<4.4) Blood Type Antibody Screen Crossmatch IS Only 05/31/20 05/31/20 05/31/20 Range/Units 22:58 22:58 16:00 WBC (4.8-10.8) x10^3/uL RBC (4.20-5.40) 10^6/uL Hgb 8.1 L (12.0-16.0) g/dL Hct (37.0-47.0) % MCV (81.0-99.0) fL MCH (27.0-31.0) pg MCHC (32.0-36.0) g/dL RDW (12.0-15.0) % Plt Count (130-450) 10^3/uL MPV (7.9-10.8) fL Neut # (Auto) (1.5-6.6) 10^3/uL Lymph # (Auto) (1.5-3.5) 10^3/uL [place] # (Auto) (0.0-1.0) 10^3/uL Eos # (Auto) (0.0-0.7) 10^3/uL Baso # (Auto) (0.0-0.1) 10^3/uL Absolute Nucleated RBC x10^3/uL Nucleated RBC % /100WBC Sodium (135-145) mmol/L Potassium (3.5-5.0) mmol/L Chloride (101-111) mmol/L Carbon Dioxide (21-32) mmol/L Anion Gap (6-13) BUN (6-20) mg/dL Creatinine (0.4-1.0) mg/dL Estimated GFR (MDRD) (>89) Glucose (70-100) mg/dL Calcium (8.5-10.3) mg/dL Troponin I High Sens 1968.2 H* (2.3-14.8) ng/L Triglycerides ( - 149) mg/dL Cholesterol ( - 199) mg/dL LDL Cholesterol, Calc ( - 129) mg/dL VLDL Cholesterol mg/dL HDL Cholesterol (60 - ) mg/dL LDL/HDL Ratio (<4.4) Cholesterol/HDL Ratio (<4.4) Blood Type O POSITIVE Antibody Screen NEGATIVE Crossmatch IS Only See Detail 05/31/20 05/31/20 05/31/20 Range/Units 16:00 13:45 11:16 WBC (4.8-10.8) x10^3/uL RBC (4.20-5.40) 10^6/uL Hgb 8.7 L (12.0-16.0) g/dL Hct 26.9 L (37.0-47.0) % MCV (81.0-99.0) fL MCH (27.0-31.0) pg MCHC (32.0-36.0) g/dL RDW (12.0-15.0) % Plt Count (130-450) 10^3/uL MPV (7.9-10.8) fL Neut # (Auto) (1.5-6.6) 10^3/uL Lymph # (Auto) (1.5-3.5) 10^3/uL [place] # (Auto) (0.0-1.0) 10^3/uL Eos # (Auto) (0.0-0.7) 10^3/uL Baso # (Auto) (0.0-0.1) 10^3/uL Absolute Nucleated RBC x10^3/uL Nucleated RBC % /100WBC Sodium (135-145) mmol/L Potassium (3.5-5.0) mmol/L Chloride (101-111) mmol/L Carbon Dioxide (21-32) mmol/L Anion Gap (6-13) BUN (6-20) mg/dL Creatinine (0.4-1.0) mg/dL Estimated GFR (MDRD) (>89) Glucose (70-100) mg/dL Calcium (8.5-10.3) mg/dL Troponin I High Sens 1053.4 H* 574.0 H* (2.3-14.8) ng/L Triglycerides ( - 149) mg/dL Cholesterol ( - 199) mg/dL LDL Cholesterol, Calc ( - 129) mg/dL VLDL Cholesterol mg/dL HDL Cholesterol (60 - ) mg/dL LDL/HDL Ratio (<4.4) Cholesterol/HDL Ratio (<4.4) Blood Type Antibody Screen Crossmatch IS Only - Current Medications Current Medications: Current Medications Generic Name Dose Route Start Last Admin Trade Name Freq PRN Reason Stop Dose Admin Acetaminophen 650 mg 05/30/20 10:08 05/31/20 01:39 Tylenol PO 650 mg Q4HR PRN Administration Pain 1 to 4 Atorvastatin Calcium 40 mg 05/31/20 21:00 05/31/20 20:42 Lipitor PO Not Given QPM NILDA Calcium Carbonate/Glycine 500 mg 05/31/20 21:00 05/31/20 20:42 Tums PO Not Given BID NILDA Enoxaparin Sodium 70 mg 05/31/20 21:00 05/31/20 20:45 Lovenox SUBQ 70 mg BID NILDA Administration Fentanyl 1 patch 05/30/20 14:00 05/30/20 18:25 Duragesic TOP Not Given Q3D NILDA Acetaminophen 100 mls @ 400 mls/hr 05/30/20 17:41 05/31/20 15:56 Ofirmev IV Infused Q6HR PRN Infusion PAIN Metoprolol Tartrate 12.5 mg 05/31/20 13:00 05/31/20 20:42 Lopressor PO 12.5 mg BID NILDA Administration Ondansetron HCl 4 mg 05/30/20 10:08 05/31/20 08:43 Zofran Inj IVP 4 mg Q6HR PRN Administration Nausea / Vomiting Oxycodone HCl 5 mg 05/30/20 10:08 06/01/20 02:30 Roxicodone PO 5 mg Q4HR PRN Administration Pain 5 to 7 Pantoprazole Sodium 40 mg 05/31/20 07:00 06/01/20 06:03 Protonix PO Not Given QDAC NILDA Sodium Chloride 10 ml 05/30/20 10:08 05/31/20 01:49 Normal Saline Flush 0.9% IVP 10 ml PRN PRN Administration NEEDED PER PROVIDER ORDERS Sodium Chloride 10 ml 05/30/20 17:00 06/01/20 00:02 Normal Saline Flush 0.9% IVP 10 ml 0100,0900,1700 NILDA Administration Sodium Chloride 10 ml 05/31/20 01:00 06/01/20 00:02 Normal Saline Flush 0.9% IVP Not Given 0100,0900,1700 NILDA Sodium Chloride 10 ml 05/30/20 17:41 05/31/20 18:17 Normal Saline Flush 0.9% IVP 10 ml PRN PRN Administration NEEDED PER PROVIDER ORDERS
[2020-06-01] MEDS: ENOXAPARIN 60 MG/0.6 ML SYRINGE SUBQ SCH ×2 (10:16→20:59)
[2020-06-01] MEDS: CALCIUM CARBONATE CHEW 500 MG TABLET PO SCH ×2 (10:16→20:58)
[2020-06-01] MEDS: CHOLECALCIFEROL 400 UNIT TABLET PO SCH (10:16)
[2020-06-01] MEDS: METOPROLOL TARTRATE 25 MG TABLET PO SCH ×2 (10:17→20:58)
--- NOTE | 2020-06-01 13:57 | PROVIDER PROGRESS NOTE ---
Subjective - Prog Note Date Prog Note Date: 06/01/20 - Subjective Pt reports feeling: Worse Subjective: Unfortunately patient troponin continue increased although pt had full treatment for her NSTEMI. pt still denies chest pain. pt also present shallow breathing although pt still has good blood pressure, hemodynamically relative stable. Updated and discussed patient medical condition and care plan with patient's DPOA, her daughter and other family member at the patient bedside. Patient, patient DPOA and other family member all want patient to have hospice care. 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 At this point, I refer pt to hospice care as well. Social work contact hospice care, hospice team will accept the patient on tomorrow afternoon, with plan to discharge patient tomorrow morning to home. Patient, patient's DPOA and other patient family member all agreed to this plan. Current Medications - Current Medications Current Medications: Active Medications Acetaminophen (Tylenol) 650 mg PO Q4HR PRN PRN Reason: Pain 1 to 4 Last Admin: 05/31/20 01:39 Dose: 650 mg Documented by: Acetaminophen (Tylenol) 650 - 975 mg PO Q4HR PRN PRN Reason: PAIN Atorvastatin Calcium (Lipitor) 40 mg PO QPM [facility] Last Admin: 05/31/20 20:42 Dose: Not Given Documented by: Calcium Carbonate/Glycine (Tums) 500 mg PO BID [facility] Last Admin: 06/01/20 10:16 Dose: 500 mg Documented by: Cholecalciferol (Vitamin D3) 400 unit PO DAILY [facility] Last Admin: 06/01/20 10:16 Dose: 400 unit Documented by: Enoxaparin Sodium (Lovenox) 70 mg SUBQ BID [facility] Last Admin: 06/01/20 10:16 Dose: 70 mg Documented by: Fentanyl (Duragesic) 1 patch TOP Q3D [facility] Last Admin: 05/30/20 18:25 Dose: Not Given Documented by: Hydralazine HCl (Apresoline Inj) 10 mg IVP Q4H PRN PRN Reason: Hypertensive Emergency Acetaminophen (Ofirmev) 100 mls @ 400 mls/hr IV Q6HR PRN PRN Reason: PAIN Last Infusion: 05/31/20 15:56 Dose: Infused Documented by: Lorazepam (Ativan) 0.5 mg PO Q6H PRN PRN Reason: Anxiety Metoprolol Tartrate (Lopressor) 12.5 mg PO BID [facility] Last Admin: 06/01/20 10:17 Dose: 12.5 mg Documented by: Ondansetron HCl (Zofran Inj) 4 mg IVP Q6HR PRN PRN Reason: Nausea / Vomiting Last Admin: 05/31/20 08:43 Dose: 4 mg Documented by: Ondansetron HCl (Zofran Inj) 4 mg IVP Q6HR PRN PRN Reason: Nausea / Vomiting Oxycodone HCl (Roxicodone) 5 mg PO Q4HR PRN PRN Reason: Pain 5 to 7 Last Admin: 06/01/20 10:19 Dose: 5 mg Documented by: Pantoprazole Sodium (Protonix) 40 mg PO QDAC [facility] Last Admin: 06/01/20 06:03 Dose: Not Given Documented by: Sodium Chloride (Normal Saline Flush 0.9%) 10 ml IVP PRN PRN PRN Reason: NEEDED PER PROVIDER ORDERS Last Admin: 05/31/20 01:49 Dose: 10 ml Documented by: Sodium Chloride (Normal Saline Flush 0.9%) 10 ml IVP 0100,0900,1700 [facility] Last Admin: 06/01/20 12:43 Dose: Not Given Documented by: Sodium Chloride (Normal Saline Flush 0.9%) 10 ml IVP 0100,0900,1700 [facility] Last Admin: 06/01/20 12:43 Dose: Not Given Documented by: Sodium Chloride (Normal Saline Flush 0.9%) 10 ml IVP PRN PRN PRN Reason: NEEDED PER PROVIDER ORDERS Last Admin: 05/31/20 18:17 Dose: 10 ml Documented by: No Known Home Medications 05/30/20 Objective - Vital Signs/Intake & Output Vital Signs: Vital Signs x48h Temp Pulse Resp BP BP Pulse Ox 06/01/20 13:00 36.7 C 65 16 123/63 95 06/01/20 10:17 141/76 H 06/01/20 07:56 36.6 C 84 20 141/76 H 97 Intake & Output: Intake & Output 09/0705/30/20 05/31/20 06/01/20 23:59 23:59 23:59 23:59 Intake Total 2150 2583.054 Output Total 5585 1075 600 Balance -125 1508.054 -600 - Objective General Appearance: positive: Alert, Moderate distress, Lethargic Eyes Bilateral: positive: Normal inspection, PERRL, No lid inflammation ENT: positive: ENT inspection nml, No signs of dehydration. negative: Purulent nasal drainage Neck: positive: Nml inspection, Trachea midline. negative: Thyromegaly, Stiff neck, Tracheal deviation Respiratory: positive: Chest non-tender, Rales. negative: No respiratory dis tress, Breath sounds nml Cardiovascular: positive: Irregularly irregular, Systolic murmur, Diastolic murmur. negative: No murmur, Tachycardia, Bradycardia Peripheral Pulses: 2+ Radial (R), 2+ Radial (L) Abdomen: positive: Non-tender, Nml bowel sounds, No distention. negative: Tenderness Back: positive: Nml inspection Skin: positive: No rash, Warm, Dry. negative: Cyanosis, Pallor Extremities: positive: Non-tender, Nml appearance. negative: Calf tenderness Neurologic/Psychiatric: positive: Oriented x3, Sensation nml. negative: Sensory loss, Facial droop, Slurred/abnml speech, Depressed mood/affect - Lab Results Fish Bones: 06/01/20 05:15 06/01/20 05:15 Other Labs: Lab Results x24hrs 06/01/20 06/01/20 06/01/20 Range/Units 05:15 05:15 05:15 WBC 10.1 (4.8-10.8) x10^3/uL RBC 2.78 L (4.20-5.40) 10^6/uL Hgb 8.2 L (12.0-16.0) g/dL Hct 25.1 L (37.0-47.0) % MCV 90.3 (81.0-99.0) fL MCH 29.5 (27.0-31.0) pg MCHC 32.7 (32.0-36.0) g/dL RDW 13.2 (12.0-15.0) % Plt Count 180 (130-450) 10^3/uL MPV 10.0 (7.9-10.8) fL Neut # (Auto) 7.9 H (1.5-6.6) 10^3/uL Lymph # (Auto) 0.8 L (1.5-3.5) 10^3/uL [place] # (Auto) 1.1 H (0.0-1.0) 10^3/uL Eos # (Auto) 0.2 (0.0-0.7) 10^3/uL Baso # (Auto) 0.1 (0.0-0.1) 10^3/uL Absolute Nucleated RBC 0.00 x10^3/uL Nucleated RBC % 0.0 /100WBC Sodium 130 L (135-145) mmol/L Potassium 3.6 (3.5-5.0) mmol/L Chloride 99 L (101-111) mmol/L Carbon Dioxide 24 (21-32) mmol/L Anion Gap 7.0 (6-13) BUN 20 (6-20) mg/dL Creatinine 0.8 (0.4-1.0) mg/dL Estimated GFR (MDRD) 68 L (>89) Glucose 90 (70-100) mg/dL Calcium 8.4 L (8.5-10.3) mg/dL Troponin I High Sens (2.3-14.8) ng/L Triglycerides 68 ( - 149) mg/dL Cholesterol 169 ( - 199) mg/dL LDL Cholesterol, Calc 92 ( - 129) mg/dL VLDL Cholesterol 14 mg/dL HDL Cholesterol 63 (60 - ) mg/dL LDL/HDL Ratio 1.5 (<4.4) Cholesterol/HDL Ratio 2.7 (<4.4) Blood Type Antibody Screen Crossmatch IS Only 05/31/20 05/31/20 05/31/20 Range/Units 22:58 22:58 16:00 WBC (4.8-10.8) x10^3/uL RBC (4.20-5.40) 10^6/uL Hgb 8.1 L (12.0-16.0) g/dL Hct (37.0-47.0) % MCV (81.0-99.0) fL MCH (27.0-31.0) pg MCHC (32.0-36.0) g/dL RDW (12.0-15.0) % Plt Count (130-450) 10^3/uL MPV (7.9-10.8) fL Neut # (Auto) (1.5-6.6) 10^3/uL Lymph # (Auto) (1.5-3.5) 10^3/uL [place] # (Auto) (0.0-1.0) 10^3/uL Eos # (Auto) (0.0-0.7) 10^3/uL Baso # (Auto) (0.0-0.1) 10^3/uL Absolute Nucleated RBC x10^3/uL Nucleated RBC % /100WBC Sodium (135-145) mmol/L Potassium (3.5-5.0) mmol/L Chloride (101-111) mmol/L Carbon Dioxide (21-32) mmol/L Anion Gap (6-13) BUN (6-20) mg/dL Creatinine (0.4-1.0) mg/dL Estimated GFR (MDRD) (>89) Glucose (70-100) mg/dL Calcium (8.5-10.3) mg/dL Troponin I High Sens 1968.2 H* (2.3-14.8) ng/L Triglycerides ( - 149) mg/dL Cholesterol ( - 199) mg/dL LDL Cholesterol, Calc ( - 129) mg/dL VLDL Cholesterol mg/dL HDL Cholesterol (60 - ) mg/dL LDL/HDL Ratio (<4.4) Cholesterol/HDL Ratio (<4.4) Blood Type O POSITIVE Antibody Screen NEGATIVE Crossmatch IS Only See Detail 05/31/20 05/31/20 Range/Units 16:00 13:45 WBC (4.8-10.8) x10^3/uL RBC (4.20-5.40) 10^6/uL Hgb 8.7 L (12.0-16.0) g/dL Hct 26.9 L (37.0-47.0) % MCV (81.0-99.0) fL MCH (27.0-31.0) pg MCHC (32.0-36.0) g/dL RDW (12.0-15.0) % Plt Count (130-450) 10^3/uL MPV (7.9-10.8) fL Neut # (Auto) (1.5-6.6) 10^3/uL Lymph # (Auto) (1.5-3.5) 10^3/uL [place] # (Auto) (0.0-1.0) 10^3/uL Eos # (Auto) (0.0-0.7) 10^3/uL Baso # (Auto) (0.0-0.1) 10^3/uL Absolute Nucleated RBC x10^3/uL Nucleated RBC % /100WBC Sodium (135-145) mmol/L Potassium (3.5-5.0) mmol/L Chloride (101-111) mmol/L Carbon Dioxide (21-32) mmol/L Anion Gap (6-13) BUN (6-20) mg/dL Creatinine (0.4-1.0) mg/dL Estimated GFR (MDRD) (>89) Glucose (70-100) mg/dL Calcium (8.5-10.3) mg/dL Troponin I High Sens 1053.4 H* (2.3-14.8) ng/L Triglycerides ( - 149) mg/dL Cholesterol ( - 199) mg/dL LDL Cholesterol, Calc ( - 129) mg/dL VLDL Cholesterol mg/dL HDL Cholesterol (60 - ) mg/dL LDL/HDL Ratio (<4.4) Cholesterol/HDL Ratio (<4.4) Blood Type Antibody Screen Crossmatch IS Only ABX Reporting Has patient been on IV antibiotics over the past 48 hours?: No Sepsis Event Note (H) - Evaluation Current Stage of Sepsis: Ruled out Assessment/Plan - Problem List (1) Encounter for hospice care Impression: 910,After extensive discussed with the patient, patient DPOA, patient's family member, patient requested to have hospice care in the home. DPOA, patient's daughter, other member family all agree to have hospice care for patient in her home. Patient think oxycodone with fentanyl patch is good for her pain control,Patient declined take blood thinner including Aspirin. DPOA wanted to pt have metoprolol to try when D/C to the home for hospice care. currently medical condition with significantly acute myocardial ischemia, patient medically noncompliant, refer to hospice care. social work was consulted. focus on comfort and quality of life. (2) NSTEMI (non-ST elevated myocardial infarction) Impression: 910, worsening.Troponin is close to 2000 from 1000, Breathing is more shallowly, although pt has relative stable hemodynamically. per Discussed with patient's DPOA, We will continue current treatment with Lovenox, beta-talia and statin, No more further blood bank laboratory technician, one-time vital signs monitor daily for pt's comfort, Unfortunately patient's allergy to morphine, We will continue other opiates for pain control With oxycodone and fentanyl patch on surgery site. 99,Patient had significantly elevated troponin of 570, New EKG show v4 and III segments had ST depression.Echo is pending.Patient had a history of cardiac murmur and Hypertension. But the patient did not take his blood pressure m edicine because she believed naturopaths, Per patient's daughter Jacqueline report. Patient also report she did not take lisinopril in the home. Now patient blood pressure is relatively stable, But the patient had a significantly reduce of her urine output, 475cc now. Patient only had a few bites of her meal. Discussed with pt's daughter for the possibility of deterioration from his heart attack and the complication s/p of surgery. Patient's daughter state she understand, she emphasized patient CODE STATUS is DNR. We will continue check serial troponin test, will start with Lovenox twice daily, metoprolol, Lipitor, continue color depositing machine tender and vital signs monitor, check lipid panel. (3) Displaced fracture of right femoral neck Conclusion/Plan: 910,Continue pain control, hold physical therapist and occupational therapist now, plan patient discharged to home for hospice care, focus on comfort and quality of life. Per new orthopedic surgeon Dr. Rojas, pt can bear the weight. 99, continue pain control, hold physical therapist on today Because of NSTEMI Patient had ground level fall in the home without loss conscious or syncope.Patient denies chest pain or shortness of breathing. X-ray show patient had a acute displaced right humeral neck fracture. Surgeon was called, Plan to have surgery on this afternoon. We will continue pain control, continue consult with surgeon. We will follow-up for s/p of surgery (4) Encounter for preoperative assessment for noncoronary cardiac surgery Conclusion/Plan: Patient denies any hx of cardiac events or history of CAD. But the patient had cardiac cardiac murmur. We will order PT/INR, EKG, echo before surgery. Preoperation cardiac events risk 0.4% per Jackson's criteria for estimated rate of myocardial infarction, pulmonary edema, ventricular fibrillation, cardiac arrest or completely heart block. (5) Hypertensive urgency Conclusion/Plan: 99, resolved, patient blood pressure is a relatively stable, Started on int ravenous IV fluids gently. 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 we will check BP and pain control for pt. surgeon was notified pt had high BP. Continue hydralazine as needed, continue vital signs monitor and color depositing machine tender, continue pain control. (6) Heart murmur Conclusion/Plan: 99, echo is pending. Patient reported she had murmur in the past, patient had a similar surgery on 2014. We will check echo for patient, surgeon was notified patient had a cardiac murmur as well. Patient denies history of CAD, patient denies syncope or loss conscious in this fall. (7) Hyponatremia Conclusion/Plan: 99, sodium today at 129, is a slightly tread down from yesterday 131, It is likely Hypovolemia with the hyponatremia. start with gently IVF Patient had sodium 131, it is likely prerenal azotemia, and hypovolemic and hyponatremia. We will continue intravenous hydration for patient, continue blood bank laboratory technician (8)medical noncompliance Patient did not take her home blood pressure medicine at least, per patient report and per patient daughter report. Advised the patient for medical compliance, patient agree.
[2020-06-01] MEDS: ATORVASTATIN 40 MG TABLET PO SCH (20:58)
[2020-06-02] MEDS: ACETAMINOPHEN 325 MG TABLET PO PRN (00:31)
[2020-06-02] MEDS: SODIUM CHLORIDE FLUSH 0.9% 10 ML SYRINGE IVP SCH ×6 (00:39→15:29)
[2020-06-02 05:09] LABS: BASOPHILS % (AUTO) 0.4 %; EOSINOPHILS % (AUTO) 0.5 %; HGB - HEMOGLOBIN 8.1 g/dL (12.0-16.0); LYMPHOCYTES # (AUTO) 0.8 10^3/uL (1.5-3.5); LYMPHOCYTES % (AUTO) 9.4 %; MEAN CORPUSCULAR HEMOGLOBIN 29.6 pg (27.0-31.0); MEAN CORPUSCULAR HGB CONC 32.4 g/dL (32.0-36.0); MEAN CORPUSCULAR VOLUME 91.2 fL (81.0-99.0); MEAN PLATELET VOLUME 10.1 fL (7.9-10.8); MONOCYTES # (AUTO) 0.9 10^3/uL (0.0-1.0); MONOCYTES % (AUTO) 10.8 %; NEUTROPHILS # (AUTO) 6.6 10^3/uL (1.5-6.6); NEUTROPHILS % (AUTO) 78.5 %; PLT - PLATELET COUNT 200 10^3/uL (130-450); RED BLOOD COUNT 2.74 10^6/uL (4.20-5.40); RED CELL DISTRIBUTION WIDTH 13.2 % (12.0-15.0); WHITE BLOOD COUNT 8.3 x10^3/uL (4.8-10.8)
[2020-06-02 05:18] LABS: CALCIUM 8.5 mg/dL (8.5-10.3); CREATININE 0.8 mg/dL (0.4-1.0)
[2020-06-02] MEDS: PANTOPRAZOLE 40 MG TABLET PO SCH (06:21)
--- NOTE | 2020-06-02 07:57 | PROVIDER PROGRESS NOTE ---
Subjective - General Admit Date: 05/30/20 Procedure Date: 05/30/20 Post Op Days: 3 Procedure Performed: Hemiarthroplasty right hip - Review of Systems Wound/Incisions: positive: Dressing dry and intact General: negative: Other (She is alert, pain is controlled with medication, krishna es chest pain or shortness of breath, communicates well) Musculoskeletal: negative: Other (Overall, patient's progress is not improving. She has some pain, weakness, poor appetite and I think her motivation to live may be decreasing. Does not seem to complain of chest pain.) Skin: positive: No symptoms Psychiatric: positive: No symptoms Objective - Patient Data Vital Signs: Vital Signs x48h Temp Pulse Resp BP Pulse Ox 06/02/20 07:50 36.5 C 78 16 143/60 H 100 06/02/20 00:40 74 141/59 H 06/02/20 00:00 36.4 C L 81 16 165/71 H 95 Intake & Output: Intake and Output Totals x24h 05/31/20 06/01/20 06/02/20 23:59 23:59 23:59 Intake Total 2583.054 180 100 Output Total 1075 850 100 Balance 1508.054 -670 0 - Lab Results Lab Results: 06/02/20 04:50 06/02/20 04:50 Other Lab Results: Lab Results x24hrs 06/02/20 06/02/20 06/01/20 Range/Units 04:50 04:50 19:00 WBC 8.3 (4.8-10.8) x10^3/uL RBC 2.74 L (4.20-5.40) 10^6/uL Hgb 8.1 L (12.0-16.0) g/dL Hct 25.0 L (37.0-47.0) % MCV 91.2 (81.0-99.0) fL MCH 29.6 (27.0-31.0) pg MCHC 32.4 (32.0-36.0) g/dL RDW 13.2 (12.0-15.0) % Plt Count 200 (130-450) 10^3/uL MPV 10.1 (7.9-10.8) fL Neut # (Auto) 6.6 (1.5-6.6) 10^3/uL Lymph # (Auto) 0.8 L (1.5-3.5) 10^3/uL [place] # (Auto) 0.9 (0.0-1.0) 10^3/uL Eos # (Auto) 0.0 (0.0-0.7) 10^3/uL Baso # (Auto) 0.0 (0.0-0.1) 10^3/uL Absolute Nucleated RBC 0.00 x10^3/uL Nucleated RBC % 0.0 /100WBC Sodium 131 L (135-145) mmol/L Potassium 3.8 (3.5-5.0) mmol/L Chloride 98 L (101-111) mmol/L Carbon Dioxide 24 (21-32) mmol/L Anion Gap 9.0 (6-13) BUN 20 (6-20) mg/dL Creatinine 0.8 (0.4-1.0) mg/dL Estimated GFR (MDRD) 68 L (>89) Glucose 95 (70-100) mg/dL Calcium 8.5 (8.5-10.3) mg/dL Troponin I High Sens 2078.0 H* (2.3-14.8) ng/L Coronavirus (PCR) 05/31/20 Range/Units 11:02 WBC (4.8-10.8) x10^3/uL RBC (4.20-5.40) 10^6/uL Hgb (12.0-16.0) g/dL Hct (37.0-47.0) % MCV (81.0-99.0) fL MCH (27.0-31.0) pg MCHC (32.0-36.0) g/dL RDW (12.0-15.0) % Plt Count (130-450) 10^3/uL MPV (7.9-10.8) fL Neut # (Auto) (1.5-6.6) 10^3/uL Lymph # (Auto) (1.5-3.5) 10^3/uL [place] # (Auto) (0.0-1.0) 10^3/uL Eos # (Auto) (0.0-0.7) 10^3/uL Baso # (Auto) (0.0-0.1) 10^3/uL Absolute Nucleated RBC x10^3/uL Nucleated RBC % /100WBC Sodium (135-145) mmol/L Potassium (3.5-5.0) mmol/L Chloride (101-111) mmol/L Carbon Dioxide (21-32) mmol/L Anion Gap (6-13) BUN (6-20) mg/dL Creatinine (0.4-1.0) mg/dL Estimated GFR (MDRD) (>89) Glucose (70-100) mg/dL Calcium (8.5-10.3) mg/dL Troponin I High Sens (2.3-14.8) ng/L Coronavirus (PCR) NEGATIVE - Current Medications Current Medications: Current Medications Generic Name Dose Route Start Last Admin Trade Name Freq PRN Reason Stop Dose Admin Acetaminophen 650 mg 05/30/20 10:08 06/02/20 00:31 Tylenol PO 650 mg Q4HR PRN Administration Pain 1 to 4 Atorvastatin Calcium 40 mg 05/31/20 21:00 06/01/20 20:58 Lipitor PO Not Given QPM [facility] Calcium Carbonate/Glycine 500 mg 05/31/20 21:00 06/01/20 20:58 Tums PO Not Given BID [facility] Cholecalciferol 400 unit 06/01/20 09:00 06/01/20 10:16 Vitamin D3 PO 400 unit DAILY [facility] Administration Enoxaparin Sodium 70 mg 05/31/20 21:00 06/01/20 20:59 Lovenox SUBQ Not Given BID [facility] Fentanyl 1 patch 05/30/20 14:00 05/30/20 18:25 Duragesic TOP Not Given Q3D [facility] Acetaminophen 100 mls @ 400 mls/hr 05/30/20 17:41 05/31/20 15:56 Ofirmev IV Infused Q6HR PRN Infusion PAIN Metoprolol Tartrate 12.5 mg 05/31/20 13:00 06/01/20 20:58 Lopressor PO 12.5 mg BID NILDA Administration Ondansetron HCl 4 mg 05/30/20 10:08 05/31/20 08:43 Zofran Inj IVP 4 mg Q6HR PRN Administration Nausea / Vomiting Oxycodone HCl 5 mg 05/30/20 10:08 06/01/20 21:05 Roxicodone PO 5 mg Q4HR PRN Administration Pain 5 to 7 Pantoprazole Sodium 40 mg 05/31/20 07:00 06/02/20 06:21 Protonix PO 40 mg QDAC NILDA Administration Sodium Chloride 10 ml 05/30/20 10:08 05/31/20 01:49 Normal Saline Flush 0.9% IVP 10 ml PRN PRN Administration NEEDED PER PROVIDER ORDERS Sodium Chloride 10 ml 05/30/20 17:00 06/02/20 00:39 Normal Saline Flush 0.9% IVP 10 ml 0100,0900,1700 NILDA Administration Sodium Chloride 10 ml 05/31/20 01:00 06/02/20 04:12 Normal Saline Flush 0.9% IVP 10 ml 0100,0900,1700 NILDA Administration Sodium Chloride 10 ml 05/30/20 17:41 05/31/20 18:17 Normal Saline Flush 0.9% IVP 10 ml PRN PRN Administration NEEDED PER PROVIDER ORDERS Impression/Plan - Problem List Problem List: She is status post hemiarthroplasty of the hip. There is no clinical deformity and I can move her hip with relatively little pain. However, she still has some pain, generalized weakness and debility, poor appetite and motivation seems to be decreasing to wanted do activities. In addition, she has had a recent myocardial infarction. She is being evaluated today for hospice. We will continue supportive care.
[2020-06-02] MEDS: CALCIUM CARBONATE CHEW 500 MG TABLET PO SCH ×2 (10:32→20:51)
[2020-06-02] MEDS: CHOLECALCIFEROL 400 UNIT TABLET PO SCH (10:34)
[2020-06-02] MEDS: lisinopriL 5 MG TABLET PO SCH (10:37)
[2020-06-02] MEDS: METOPROLOL TARTRATE 25 MG TABLET PO SCH ×2 (10:39→20:49)
[2020-06-02] MEDS: ENOXAPARIN 80 MG/0.8 ML SYRINGE SUBQ SCH ×2 (11:46→20:52)
[2020-06-02] MEDS: oxyCODONE 5 MG TABLET PO PRN ×2 (13:04→20:51)
[2020-06-02] MEDS: fentaNYL 12 MCG PATCH TOP SCH (13:08)
--- NOTE | 2020-06-02 13:15 | PROVIDER PROGRESS NOTE ---
Subjective - Prog Note Date Prog Note Date: 06/02/20 - Subjective Pt reports feeling: Improved Subjective: Improved. Patient ate breakfast by herself. She still deny chest pain. She feel a little better on today. Dr. Vale come to assessment the patient, he accepted patient for hospice. Hospice equipment would be delivered on tomorrow afternoon. Dr. vale state he can not accept pt until next week, he will call pt's family on Next Friday to set up the time to see pt. Current Medications - Current Medications Current Medications: Active Medications Acetaminophen (Tylenol) 650 mg PO Q4HR PRN PRN Reason: Pain 1 to 4 Last Admin: 06/02/20 00:31 Dose: 650 mg Documented by: Acetaminophen (Tylenol) 650 - 975 mg PO Q4HR PRN PRN Reason: PAIN Atorvastatin Calcium (Lipitor) 40 mg PO QPM [facility] Last Admin: 06/01/20 20:58 Dose: Not Given Documented by: Calcium Carbonate/Glycine (Tums) 500 mg PO BID [facility] Last Admin: 06/02/20 10:32 Dose: 500 mg Documented by: Cholecalciferol (Vitamin D3) 400 unit PO DAILY [facility] Last Admin: 06/02/20 10:34 Dose: 400 unit Documented by: Enoxaparin Sodium (Lovenox) 70 mg SUBQ BID [facility] Last Admin: 06/02/20 11:46 Dose: 70 mg Documented by: Fentanyl (Duragesic) 1 patch TOP Q3D [facility] Last Admin: 06/02/20 13:08 Dose: 1 patch Documented by: Hydralazine HCl (Apresoline Inj) 10 mg IVP Q4H PRN PRN Reason: Hypertensive Emergency Acetaminophen (Ofirmev) 100 mls @ 400 mls/hr IV Q6HR PRN PRN Reason: PAIN Last Infusion: 05/31/20 15:56 Dose: Infused Documented by: Lisinopril (Zestril) 5 mg PO DAILY [facility] Last Admin: 06/02/20 10:37 Dose: 5 mg Documented by: Lorazepam (Ativan) 0.5 mg PO Q6H PRN PRN Reason: Anxiety Metoprolol Tartrate (Lopressor) 12.5 mg PO BID [facility] Last Admin: 06/02/20 10:39 Dose: 12.5 mg Documented by: Ondansetron HCl (Zofran Inj) 4 mg IVP Q6HR PRN PRN Reason: Nausea / Vomiting Last Admin: 05/31/20 08:43 Dose: 4 mg Documented by: Ondansetron HCl (Zofran Inj) 4 mg IVP Q6HR PRN PRN Reason: Nausea / Vomiting Oxycodone HCl (Roxicodone) 5 mg PO Q4HR PRN PRN Reason: Pain 5 to 7 Last Admin: 06/02/20 13:04 Dose: 5 mg Documented by: Pantoprazole Sodium (Protonix) 40 mg PO QDAC [facility] Last Admin: 06/02/20 06:21 Dose: 40 mg Documented by: Sodium Chloride (Normal Saline Flush 0.9%) 10 ml IVP PRN PRN PRN Reason: NEEDED PER PROVIDER ORDERS Last Admin: 05/31/20 01:49 Dose: 10 ml Documented by: Sodium Chloride (Normal Saline Flush 0.9%) 10 ml IVP 0100,0900,1700 [facility] Last Admin: 06/02/20 13:12 Dose: 10 ml Documented by: Sodium Chloride (Normal Saline Flush 0.9%) 10 ml IVP 0100,0900,1700 [facility] Last Admin: 06/02/20 11:15 Dose: Not Given Documented by: Sodium Chloride (Normal Saline Flush 0.9%) 10 ml IVP PRN PRN PRN Reason: NEEDED PER PROVIDER ORDERS Last Admin: 05/31/20 18:17 Dose: 10 ml Documented by: No Known Home Medications 05/30/20 Objective - Vital Signs/Intake & Output Vital Signs: Vital Signs x48h Temp Pulse Resp BP BP Pulse Ox 06/02/20 10:39 146/67 H 06/02/20 07:50 36.5 C 78 16 143/60 H 100 Intake & Output: Intake & Output 05/30/20 05/31/20 06/01/20 06/02/20 23:59 23:59 23:59 23:59 Intake Total 2150 2583.054 180 100 Output Total 2275 1075 850 100 Balance -125 1508.054 -670 0 - Objective General Appearance: positive: No acute distress, Alert. negative: Lethargic Eyes Bilateral: positive: Normal inspection, PERRL, No lid inflammation ENT: positive: ENT inspection nml, No signs of dehydration. negative: Purulent nasal drainage Neck: positive: Nml inspection, Thyroid nml, Trachea midline. negative: Thyromegaly, Stiff neck, Tracheal deviation Respiratory: positive: Chest non-tender. negative: Wheezes, Rhonchi Cardiovascular: positive: Systolic murmur. negative: No murmur, Irregularly irregular, Tachycardia, Bradycardia Peripheral Pulses: 2+ Radial (R), 2+ Radial (L) Abdomen: positive: Non-tender, Nml bowel sounds, No distention. negative: Te nderness Back: positive: Nml inspection Skin: positive: Color nml, No rash, Warm, Dry. negative: Cyanosis, Diaphoresis, Pallor Extremities: negative: Calf tenderness Neurologic/Psychiatric: positive: Oriented x3, Sensation nml, Mood/affect nml, Weakness. negative: Sensory loss, Facial droop, Slurred/abnml speech, Depressed mood/affect - Lab Results Fish Bones: 06/02/20 04:50 06/02/20 04:50 Other Labs: Lab Results x24hrs 06/02/20 06/02/20 06/02/20 Range/Units 04:50 04:50 04:50 WBC 8.3 (4.8-10.8) x10^3/uL RBC 2.74 L (4.20-5.40) 10^6/uL Hgb 8.1 L (12.0-16.0) g/dL Hct 25.0 L (37.0-47.0) % MCV 91.2 (81.0-99.0) fL MCH 29.6 (27.0-31.0) pg MCHC 32.4 (32.0-36.0) g/dL RDW 13.2 (12.0-15.0) % Plt Count 200 (130-450) 10^3/uL MPV 10.1 (7.9-10.8) fL Neut # (Auto) 6.6 (1.5-6.6) 10^3/uL Lymph # (Auto) 0.8 L (1.5-3.5) 10^3/uL [place] # (Auto) 0.9 (0.0-1.0) 10^3/uL Eos # (Auto) 0.0 (0.0-0.7) 10^3/uL Baso # (Auto) 0.0 (0.0-0.1) 10^3/uL Absolute Nucleated RBC 0.00 x10^3/uL Nucleated RBC % 0.0 /100WBC Sodium 131 L (135-145) mmol/L Potassium 3.8 (3.5-5.0) mmol/L Chloride 98 L (101-111) mmol/L Carbon Dioxide 24 (21-32) mmol/L Anion Gap 9.0 (6-13) BUN 20 (6-20) mg/dL Creatinine 0.8 (0.4-1.0) mg/dL Estimated GFR (MDRD) 68 L (>89) Glucose 95 (70-100) mg/dL Calcium 8.5 (8.5-10.3) mg/dL Troponin I High Sens 1964.6 H* (2.3-14.8) ng/L Coronavirus (PCR) 06/01/20 05/31/20 Range/Units 19:00 11:02 WBC (4.8-10.8) x10^3/uL RBC (4.20-5.40) 10^6/uL Hgb (12.0-16.0) g/dL Hct (37.0-47.0) % MCV (81.0-99.0) fL MCH (27.0-31.0) pg MCHC (32.0-36.0) g/dL RDW (12.0-15.0) % Plt Count (130-450) 10^3/uL MPV (7.9-10.8) fL Neut # (Auto) (1.5-6.6) 10^3/uL Lymph # (Auto) (1.5-3.5) 10^3/uL [place] # (Auto) (0.0-1.0) 10^3/uL Eos # (Auto) (0.0-0.7) 10^3/uL Baso # (Auto) (0.0-0.1) 10^3/uL Absolute Nucleated RBC x10^3/uL Nucleated RBC % /100WBC Sodium (135-145) mmol/L Potassium (3.5-5.0) mmol/L Chloride (101-111) mmol/L Carbon Dioxide (21-32) mmol/L Anion Gap (6-13) BUN (6-20) mg/dL Creatinine (0.4-1.0) mg/dL Estimated GFR (MDRD) (>89) Glucose (70-100) mg/dL Calcium (8.5-10.3) mg/dL Troponin I High Sens 2078.0 H* (2.3-14.8) ng/L Coronavirus (PCR) NEGATIVE ABX Reporting Has patient been on IV antibiotics over the past 48 hours?: No Sepsis Event Note (H) - Evaluation Current Stage of Sepsis: Ruled out Assessment/Plan - Problem List (1) Encounter for hospice care Impression: 06-02 Dr. Vale come to assessment the patient, he accepted patient for hospice. Hospice equipment would be delivered on tomorrow afternoon. Dr. vale state he can not accept pt until next week, he will call pt's family on Next Friday to set up the time to see pt. pt and pt's DPOA still request hospice care at the home. recommend we continue manage pt's NSTEMI in hospital today and d/c pt with following meds: Metoprolol, Lisinopril, Fentany patch, ASA, and OXycodone, d/c pt on tomorrow afternoon after pt receive the hospice equipment. Discussed the care plan including medication regimen with pt and pt's DPOA as well, both agree the care plan 91,After extensive discussed with the patient, patient DPOA, patient's family member, patient requested to have hospice care in the home. DPOA, patient's daughter, other member family all agree to have hospice care for patient in her home. Patient think oxycodone with fentanyl patch is good for her pain control,Patient declined take blood thinner including Aspirin. DPOA wanted to pt have metoprolol to try when D/C to the home for hospice care. currently medical condition with significantly acute myocardial ischemia, pat ient medically noncompliant, refer to hospice care. social work was consulted. focus on comfort and quality of life. (2) NSTEMI (non-ST elevated myocardial infarction) Impression: 06/02, pt will need Lovenox on today for her acute phase of CA management, will s witch to new PO aspirin. pt now agree to try to take Aspirin. pt's troponin level is flat but still has over 1900. pt still need closely monitor after switch to new meds. since hospice only can come to see pt on next week, pt start to have acute CA two days ago. pt still need closely monitor and assessment her hemodynamic status before hospice take care of pt. Also pt still need Oxygen now, still is hemodynamically unstable, pt may need Oxygen sat study to have home oxygen before hospice can see pt on next week. pt still need to stay hospital for acute NSTEMI care. 910, worsening.Troponin is close to 2000 from 1000, Breathing is more shallowly, although pt has relative stable hemodynamically. per Discussed with patient's DPOA, We will continue current treatment with Lovenox, beta-talia and statin, No more further geotechnical laboratory technician, one-time vital signs monitor daily for pt's comfort, Unfortunately patient's allergy to morphine, We will continue other opiates for pain control With oxycodone and fentanyl patch on surgery site. 99,Patient had significantly elevated troponin of 570, New EKG shows V3 and V4 T wave inversion, V5 and V6 T wave flat, III remain nearly the same.Echo is pending.Patient had a history of cardiac murmur and Hypertension. But the patient did not take his blood pressure medicine because she believed naturopaths, Per patient's daughter Jacqueline report. Patient also report she did not take lisinopril in the home. Now patient blood pressure is relatively stable, But the patient had a significantly reduce of her urine output, 475cc now. Patient only had a few bites of her meal. Discussed with pt's daughter for the possibility of deterioration from his heart attack and the complication s/p of surgery. Patient's daughter state she understand, she emphasized patient CODE STATUS is DNR. We will continue check serial troponin test, will start with Lovenox twice daily, metoprolol, Lipitor, continue claims vice president and vital signs monitor, check lipid panel. (3)hypoxia Patient's sat was drop to 90% from 96% on room air when pt had acute CA, now she still need oxygen to remain her sat. pt may need to adjust her supplement of O2 amount as her ongoing acute CA, pt is likely need home oxygen before we can discharge. (4) Displaced fracture of right femoral neck Conclusion/Plan: 06/02 since pt and DPOA declined to be d/c to SNF, and request to be d/c to home with hospice care, will continue medical management and focus on comfortable, quality of life and pain control, pt will be follow up with hospice care after d/c. 910,Continue pain control, hold physical therapist and occupational therapist now, plan patient discharged to home for hospice care, focus on comfort and quality of life. Per new orthopedic surgeon Dr. Rojas, pt can bear the weight. 99, continue pain control, hold physical therapist on today Because of NSTEMI Patient had ground level fall in the home without loss conscious or syncope.Patient denies chest pain or shortness of breathing. X-ray show patient had a acute displaced right humeral neck fracture. Surgeon was called, Plan to have surgery on this afternoon. We will continue pain control, continue consult with surgeon. We will follow-up for s/p of surgery (5) Encounter for preoperative assessment for noncoronary cardiac surgery Conclusion/Plan: Patient denies any hx of cardiac events or history of CAD. But the patient had cardiac cardiac murmur. We will order PT/INR, EKG, echo before surgery. Preoperation cardiac events risk 0.4% per Jackson's criteria for estimated rate of myocardial infarction, pulmonary edema, ventricular fibrillation, cardiac arrest or completely heart block. (6) Hypertensive urgency Conclusion/Plan: 06/02 pt agree two BP meds: lisinopril and Metoprolol now, will continue BP control. 99, resolved, patient blood pressure is a relatively stable, Started on intravenous IV fluids gently. 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 we will check BP and pain control for pt. surgeon was notified pt had high BP. Continue hydralazine as needed, continue vital signs monitor and claims vice president, continue pain control. (7) Heart murmur Conclusion/Plan: 06/02 ECHO reveals 50-55% EF and moderate aortic stenosis, will follow up with hospice care 99, echo is pending. Patient reported she had murmur in the past, patient had a similar surgery on 2014. We will check echo for patient, surgeon was notified patient had a cardiac murmur as well. Patient denies history of CAD, patient denies syncope or loss conscious in this fall. (8) Hyponatremia Conclusion/Plan: 06/02 sodium is 131 today, slight improved. continue lab monitor 99, sodium today at 129, is a slightly tread down from yesterday 131, It is likely Hypovolemia with the hyponatremia. start with gently IVF Patient had sodium 131, it is likely prerenal azotemia, and hypovolemic and hyponatremia. We will continue intravenous hydration for patient, continue geotechnical laboratory technician (9)medical noncompliance Patient did not take her home blood pressure medicine at least, per patient report and per patient daughter report. Advised the patient for medical compliance, patient agree.
[2020-06-02] MEDS: ACETAMINOPHEN 1,000 MG/100 ML 100 ML IV PRN (15:29)
[2020-06-02] MEDS: ATORVASTATIN 40 MG TABLET PO SCH (20:51)
[2020-06-03] MEDS: oxyCODONE 5 MG TABLET PO PRN ×3 (01:23→14:15)
[2020-06-03] MEDS: SODIUM CHLORIDE FLUSH 0.9% 10 ML SYRINGE IVP SCH ×4 (01:24→09:37)
[2020-06-03] MEDS: PANTOPRAZOLE 40 MG TABLET PO SCH (06:24)
[2020-06-03 06:40] LABS: BASOPHILS # (AUTO) 0.1 10^3/uL (0.0-0.1); BASOPHILS % (AUTO) 0.8 %; EOSINOPHILS # (AUTO) 0.3 10^3/uL (0.0-0.7); EOSINOPHILS % (AUTO) 2.7 %; HGB - HEMOGLOBIN 8.1 g/dL (12.0-16.0); LYMPHOCYTES # (AUTO) 1.2 10^3/uL (1.5-3.5); MEAN CORPUSCULAR HGB CONC 31.4 g/dL (32.0-36.0); MEAN CORPUSCULAR VOLUME 92.5 fL (81.0-99.0); MEAN PLATELET VOLUME 10.1 fL (7.9-10.8); MONOCYTES % (AUTO) 10.6 %; NEUTROPHILS # (AUTO) 6.6 10^3/uL (1.5-6.6); NEUTROPHILS % (AUTO) 72.4 %; PLT - PLATELET COUNT 221 10^3/uL (130-450); RED BLOOD COUNT 2.79 10^6/uL (4.20-5.40); RED CELL DISTRIBUTION WIDTH 13.2 % (12.0-15.0); WHITE BLOOD COUNT 9.1 x10^3/uL (4.8-10.8)
[2020-06-03 06:47] LABS: CALCIUM 8.3 mg/dL (8.5-10.3); CREATININE 0.7 mg/dL (0.4-1.0)
[2020-06-03] MEDS ORDERED: polyethylene glycoL 3350 17 GM PACKET PO SCH (09:00)
[2020-06-03] MEDS: CHOLECALCIFEROL 400 UNIT TABLET PO SCH (09:36)
[2020-06-03] MEDS: CALCIUM CARBONATE CHEW 500 MG TABLET PO SCH (09:36)
[2020-06-03] MEDS: ENOXAPARIN 80 MG/0.8 ML SYRINGE SUBQ SCH (09:36)
[2020-06-03] MEDS: lisinopriL 5 MG TABLET PO SCH (09:36)
[2020-06-03] MEDS: METOPROLOL TARTRATE 25 MG TABLET PO SCH (09:36)
--- NOTE | 2020-06-03 11:58 | Discharge Plan ---
Discharge Plan Problem Reviewed?: Yes Disposition: 50 Hospice/Home DC/Xfer Condition: Serious Prescriptions: oxyCODONE [Roxicodone] 5 mg PO Q4HR PRN #60 tablet PRN Reason: Pain 5 to 7 fentaNYL 12 MCG PATCH [Duragesic 12mcg patch] 1 patch TOP Q3D PRN #5 patch PRN Reason: Pain Metoprolol Tartrate [Lopressor] 12.5 mg PO BID #30 tablet lisinopriL [Zestril] 5 mg PO DAILY #15 tablet Diet: Soft Activity Restrictions: Wt Bearing as Tolerated Instruction Topics: Lisinopril tablets, Metoprolol tablets, fentanyl skin patch, Oxycodone tablets or capsules, Hospice, Hospice Pain Management, Hospice Nears, Hospice Dyspnea Care, Hospice Start Health Concerns: hospice care Plan of Treatment: advise followup with hospice care. Care Goals: comfortable care and quality of life Assessment: discussed the care plan with your daughter, SRIDHAR, she understood and agreed. Additional Instructions or Follow Up instructions: followup with hospice care Follow-Up Care: Hospice No Smoking: If you smoke, Please STOP! Call for help. Follow-up with: Uvaldo Vale MD [Provider Admit Priv/Credential] -
--- NOTE | 2020-06-03 12:09 | DISCHARGE SUMMARY ---
"Discharge Summary Admit Date: 05/30/20 Discharge Date: 06/03/20 Discharging Provider: Eric Bledsoe Primary Care Provider: Feliberto Freire Condition at Discharge: Serious Discharge Disposition: 50 Hospice/Home DC/Xfer Discharge Facility Name: home - DIAGNOSES Discharge Diagnoses with Status of Each Condition: (1) Encounter for hospice care pt. and pt's DPOA request hospice care. pt had NSTEMI, she had hx of medical noncompliance, she state she will not take Aspirin or blood thinner, she choose hospice care and natural . Dr Vale accepted pt for hospice care. (2) NSTEMI (non-ST elevated myocardial infarction) pt developed NSTEMI in the status post of day one of right hip repair. Troponin remain over 1900. EKG had acute change, New EKG shows V3 and V4 T wave inversion, V5 and V6 T wave flat, III remain nearly the same. pt declined to take aspirin and some dosage of Lovenox in hospital. pt and her DPOA request to be prescribed beta block and continue Lisinopril for her. Dr Vale also re commend beta block and continue Lisinopril for pt as well. (3)hypoxia resolved. (4) Displaced fracture of right femoral neck pt and her DPAO refused to be d/c to SNF, and request hospice care. hospice care provider accept pt as well. pt is prescribed Fentaly patch and oxycode for pain control. these two meds is good pain control in the hospital for pt. (5) Encounter for preoperative assessment for noncoronary cardiac surgery unfortunately pt developed acute DC status post of hip repair. pt was not finished ECHO for her murmur before she had surgery. pt had moderate aortic stenosis. pt had 50-55% EF. (6) Hypertensive urgency resolved. pt is prescribed metoprolol and Lisinopril for home, per Dr. Vale recommended. (7) Heart murmur unfortunately pt developed acute DC status post of hip repair. pt was not finished ECHO for her murmur before she had surgery. pt had moderate aortic stenosis. (8) Hyponatremia improved Na 131. 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 pt state she will not take Aspirin and statin, she choose hospice care for her. - HPI History of Present Illness: This is a 89 years old female with a past medical history significant for hypertension, heart murmur, asthma, urinary frequency, osteoarthritis, Previous left hip repair due to fall, Who presented ER complaining fall. Patient report she had ground level of fall in the home. Because she cannot grape and hold then she fall in the ground. She denies loss of conscious, Denies any other injury. Patient did have similar fall happened in 2014 on her left hip then she had a left hip repair in this hospital in 2014.She denies any cardiac events in the past, she does not have upward bound director. She did report she has heart murmur. She had blood blood pressure over 200 in the ER, SBP at 192 in the medical floor. 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 Nurse try to give her blood pressure medicine but she declined, she stated she is taking radio operator ground, she is thinking her blood pressure is high because of her pain, so she declined to take medication now, she hope we give her her time in the pain control and then check the blood pressure again. Patient report his pain is controlled now. I discussed with nurse, we will continue her pain control, check pt's BP and continue monitor. Patient denies fever, chest pain, syncope, abdominal pain, headache. X-ray will show patient had an acute displaced right femur neck fracture. Orthopedic surgeon was called in the ER. Discussed the care goal with the patient, patient requests DNR, patient state he had living will which state she is DNR - CONSULTS | PROCEDURES Consultations: Dr Vale Procedures: hospice care - HOSPITAL COURSE Hospital Course: Patient was admitted for evaluation of fall. Patient was found to have right hip fracture. Orthopedic surgeon was consulted. Patient had right hip repair at the admission day before patient had echo and had high blood pressure even patient could not finish troponin test. Later echo did show patient had moderate aortic stenosis with EF 50 to 55% with Regional wall motion abnormality.Unfortunately patient did develop acute myocardial infarction. Troponin elevated to 2000, EKG showed acute change, echo show mildly impaired EF with regional wall motion abnormality. At this point, patient and patient DPDAVID, patient's daughter, wanted to have hospice care for pt. Finally Dr. Vale evaluated and accepted patient for hospice care. - ALLERGIES Allergies/Adverse Reactions: Allergies Allergy/AdvReac Type Severity Reaction Status Date / Time Fruit Allergy Intermediate Respiratory Verified 05/30/20 08:37 chlorthalidone AdvReac Intermediate URINARY Verified 05/30/20 08:37 FREQUENCY,HYPONATREMIA morphine AdvReac Emesis Verified 05/31/20 02:31 - MEDICATIONS Home Medications: Ambulatory Orders Medication Instructions Recorded Confirmed Metoprolol Tartrate [Lopressor] 12.5 mg PO BID #30 tablet 06/03/20 fentaNYL 12 MCG PATCH [Duragesic 1 patch TOP Q3D PRN #5 patch 06/03/20 12mcg patch] lisinopriL [Zestril] 5 mg PO DAILY #15 tablet 06/03/20 oxyCODONE [Roxicodone] 5 mg PO Q4HR PRN #60 tablet 06/03/20 - PHYSICAL EXAM AT DISCHARGE General Appearance: positive: No acute distress, Alert, Lethargic Eyes Bilateral: positive: Normal inspection, No lid inflammation ENT: positive: ENT inspection nml, No signs of dehydration. negative: Purulent nasal drainage Neck: positive: Nml inspection, Trachea midline. negative: Thyromegaly, Stiff neck, Tracheal deviation Respiratory: positive: Chest non-tender, No respiratory distress. negative: Wheezes Cardiovascular: positive: Regular rate & rhythm, Systolic murmur, Diastolic murmur. negative: No murmur, Tachycardia, Bradycardia Peripheral Pulses: positive: 2+ Abdomen: positive: Non-tender, Nml bowel sounds, No distention. negative: Tenderness, Guarding, Rebound Back: positive: Nml inspection Skin: positive: Color nml, No rash, Warm, Dry. negative: Cyanosis, Diaphoresis, Pallor Extremities: positive: Nml appearance. negative: Calf tenderness Neurologic/Psychiatric: positive: Oriented x3, Sensation nml, Mood/affect nml. negative: Sensory loss, Facial droop, Slurred/abnml speech, Depressed mood/affect - LABS Result Diagrams: 06/03/20 05:55 06/03/20 05:55 - SEPSIS Current Stage of Sepsis: Ruled out - FOLLOW UP Follow Up: followup with hospice care - TIME SPENT Time Spent in Discharge (Minutes): 30"
[2020-06-03] MEDS: ACETAMINOPHEN 325 MG TABLET PO PRN (14:15)
[2020-06-03 14:32] VITALS: BP 143/59
== END 2020-06-03 15:14 | disposition hospice, home (50) | DRG 469 ==
LOC: EDUNIT# → ED 08:30 → MS2 10:08
PROVIDERS: ADMIT Nurse Practitioner Gerontology; ATTEND Nurse Practitioner Gerontology
PROC: 0SRR01A Replacement of Right Hip Joint, Femoral Surface with Metal Synthetic Substitute, Uncemented, Open Approach (ICD-10-PCS; principal; 2020-05-30 13:30)
DX: S72.001A Fracture of unspecified part of neck of right femur, initial encounter for closed fracture (principal); I21.4 Non-ST elevation (NSTEMI) myocardial infarction; E87.1 Hypo-osmolality and hyponatremia; W18.30XA Fall on same level, unspecified, initial encounter; Y92.009 Unspecified place in unspecified non-institutional (private) residence as the place of occurrence of the external cause; I10 Essential (primary) hypertension; R09.02 Hypoxemia; I35.0 Nonrheumatic aortic (valve) stenosis; I16.0 Hypertensive urgency; T46.5X6A Underdosing of other antihypertensive drugs, initial encounter; Z91.128 Patient's intentional underdosing of medication regimen for other reason; Z66 Do not resuscitate; Z87.891 Personal history of nicotine dependence; R79.89 Other specified abnormal findings of blood chemistry; E86.1 Hypovolemia; Z51.5 Encounter for palliative care
CPT/HCPCS: 36415; 71045; 73502; 80048; 80053; 80061; 81001; 83690; 83735; 84100; 84484; 85014; 85018; 85025; 85610; 86850; 86900; 86901; 86920; 93005; 93306; 96374; 97161; 99284; 99285; A9270; J0131; J1650; J7120; U0004; 81003; 83721; 87086